=== PATIENT | female | born 1985 | race Two or more races ===

== ENCOUNTER 2018-10-13 23:23 | Inpatient (IN) | payer SELFPAY ==
[~2018-10-13] VITALS: Ht 157.5 cm; Wt 57.6 kg
[2018-10-13] MEDS ORDERED: Morphine Sulfate 4mg/ml Inj (IV USE ONLY) IVP ONE (23:45)
[2018-10-14] VITALS (25 sets, daily range): BP systolic 100–157; BP diastolic 55–90
[2018-10-14 00:17] LABS: HEMATOCRIT 53.9 % (37.0-47.0); HEMOGLOBIN 17.3 G/DL (12.0-16.0); MEAN CORPUSCULAR VOLUME 97 FL (80-99); PLATELET COUNT 442 K/UL (150-450); RED BLOOD COUNT 5.55 M/UL (4.20-5.40); RED CELL DISTRIBUTION WIDTH 12.1 % (11.6-14.8); WHITE BLOOD COUNT 19.1 K/UL (4.8-10.8)
[2018-10-14] MEDS ORDERED: Morphine Sulfate 4mg/ml Inj (IV USE ONLY) IVP ONE (00:30)
[2018-10-14] MEDS ORDERED: Pantoprazole Inj IVP ONE (00:30)
[2018-10-14 00:34] LABS: ALANINE AMINOTRANSFERASE 47 U/L (12-78); ALBUMIN 3.7 G/DL (3.4-5.0); ALBUMIN/GLOBULIN RATIO 0.6 (1.0-2.7); ALKALINE PHOSPHATASE 168 U/L (46-116); ANION GAP 32 mmol/L (5-15); ASPARTATE AMINO TRANSFERASE 18 U/L (15-37); BILIRUBIN,TOTAL 0.7 MG/DL (0.2-1.0); BLOOD UREA NITROGEN 47 mg/dL (7-18); CALCIUM 9.5 MG/DL (8.5-10.1); CHLORIDE 90 MMOL/L (98-107); CREATININE 1.9 MG/DL (0.55-1.30); POTASSIUM 4.7 MMOL/L (3.5-5.1); SODIUM 130 MMOL/L (136-145)
[2018-10-14 00:47] LABS: CARBON DIOXIDE 8 MMOL/L (21-32)
[2018-10-14 01:58] LABS: APPEARANCE,URINE CLEAR; BILIRUBIN, URINE NEGATIVE (NEGATIVE); COLOR,URINE PALE YELLOW; GLUCOSE, URINE (UA) 4+ (NEGATIVE); KETONES,URINE 4+ (NEGATIVE); LEUKOCYTE ESTERASE ,URINE NEGATIVE (NEGATIVE); NITRITE,URINE NEGATIVE (NEGATIVE); PH,URINE 5 (4.5-8.0); PROTEIN,URINE 3+ (NEGATIVE); UROBILINOGEN,URINE NORMAL MG/DL (0.0-1.0)
--- NOTE | 2018-10-14 02:10 | Emergency Room Report ---
History of Present Illness General Chief Complaint: Abdominal Pain Source: Patient, EMS Present Illness HPI This is a 33-year-old female with a history of insulin-dependent diabetes. She is not taking any medication. She said she doesn't want to. She also has a history of methamphetamine abuse. She presents with chief complaint abdominal pain with nausea and vomiting. Also with hematemesis. Onset for last 3 days. Unable to keep anything down. Similar symptoms 4 months ago when she was at another hospital. She did not know what happened. He denies any fever chills but denies any diarrhea. Vomiting has blood per patient. Said his dark blood. Denies any fever or chills. Denies any trauma. Pain is 10 out of 10. Pain is localized to the epigastric area. Allergies: Coded Allergies: No Known Allergies (Unverified , 10/13/18) Patient History Past Medical History: see triage record, old chart reviewed, DM Past Surgical History: other Pertinent Family History: none Social History: Reports: smoking, drug use - Methamphetamine Now: No Immunizations: other Reviewed Nursing Documentation: PMH: Agreed; PSxH: Agreed Nursing Documentation-PMH Hx Diabetes: Yes Review of Systems Constitutional: Reports: weakness Eye: Denies: eye pain, blurred vision ENT: Denies: ear pain, nose congestion, throat swelling Respiratory: Denies: cough, shortness of breath Cardiovascular: Denies: chest pain, palpitations Gastrointestinal: Reports: abdominal pain, nausea, vomiting, hematemesis Musculoskeletal: Denies: back pain, joint pain Skin: Denies: rash Neurological: Denies: headache, numbness Endocrine: Denies: increased thirst, increased urine Hematologic/Lymphatic: Denies: easy bruising All Other Systems: negative except mentioned in HPI Physical Exam Vital Signs Date Time Temp Pulse Resp B/P (MAP) Pulse Ox O2 Delivery O2 Flow Rate FiO2 10/13/18 23:19 97.9 139 20 130/86 100 Room Air vitals with tachycardia Sp02 EP Interpretation: reviewed, normal General Appearance: no apparent distress, alert, thin Head: normocephalic, atraumatic Eyes: bilateral eye PERRL, bilateral eye EOMI ENT: hearing grossly normal, dry mucus membranes Neck: full range of motion, supple, no meningismus Respiratory: chest non-tender, lungs clear, normal breath sounds Cardiovascular #1: no murmur, tachycardia Gastrointestinal: normal bowel sounds, no mass, no organomegaly, no bruit, non- distended, tenderness - Epigastric tenderness Musculoskeletal: back normal, normal range of motion Neurologic: alert, oriented x3 Psychiatric: mood/affect normal Skin: warm/dry Procedures Critical Care Time Critical Care Time Critical care is mandated in this patient who presented with DKA. Patient require my urgent intervention to attenuate the risks of metabolic collapse which may lead to cardiovascular collapse and . Critical care time is 35 minutes excluding any reportable procedure. Critical care time included evaluation, multiple reevaluation, looking at old charts, interpreting laboratory and diagnostic data, discussing case with patient and family and consultants, and charting. Medical Decision Making Diagnostic Impression: Primary Impression: DKA (diabetic ketoacidoses) Qualified Codes: E10.10 - Type 1 diabetes mellitus with ketoacidosis without coma Additional Impressions: Hematemesis Qualified Codes: K92.0 - Hematemesis Methamphetamine abuse Noncompliance ER Course Patient presents with DKA. She is noncompliant with her medication. Not taking her insulin. Exacerbated by drug abuse. Insulin drip initiated. Patient will be admitted to ICU. I discussed case with Dr. Powell who will admit. Lab Results Impression labs with DKA EKG Diagnostic Results Rate: tachycardiac Rhythm: NSR ST Segments: other - NSST changes Rhythm Strip Diag. Results EP Interpretation: yes Rate: 125 Rhythm: NSR, no PVC's, no ectopy CT/MRI/US Diagnostic Results CT/MRI/US Diagnostic Results : Imaging Test Ordered: CT abd and pelvis Impression Read by radiologist. Urinary retention. Small hiatal hernia. Distal esophageal wall thickening. Last Vital Signs Date Time Temp Pulse Resp B/P (MAP) Pulse Ox O2 Delivery O2 Flow Rate FiO2 10/14/18 01:40 97.9 10/14/18 00:30 126 24 136/84 100 Room Air Status: improved Disposition: ADMITTED INPATIENT Condition: Critical Scripts No Active Prescriptions or Reported Meds Referrals: NOT CHOSEN IPA/,REFERRING (PCP) Grant Tao MD Oct 14, 2018 02:10
[2018-10-14] MEDS ORDERED: LR 1000ml 1,000 ML IV SCH (02:30)
[2018-10-14] MEDS ORDERED: Insulin Human Regular 100units/ml 3ml ONE (02:34)
[2018-10-14] MEDS ORDERED: Norco 5mg/325mg tab ORAL PRN (04:45)
[2018-10-14] MEDS ORDERED: HYDROcodone/Acetamin 7.5/325 tab ORAL PRN (04:45)
[2018-10-14 04:55] LABS: HEMATOCRIT 48.7 % (37.0-47.0); HEMOGLOBIN 15.9 G/DL (12.0-16.0); MEAN CORPUSCULAR VOLUME 96 FL (80-99); PLATELET COUNT 401 K/UL (150-450); RED CELL DISTRIBUTION WIDTH 11.7 % (11.6-14.8); WHITE BLOOD COUNT 19.7 K/UL (4.8-10.8)
[2018-10-14 05:13] LABS: ALANINE AMINOTRANSFERASE 42 U/L (12-78); ALBUMIN 3.2 G/DL (3.4-5.0); ALBUMIN/GLOBULIN RATIO 0.6 (1.0-2.7); ALKALINE PHOSPHATASE 152 U/L (46-116); ANION GAP 27 mmol/L (5-15); ASPARTATE AMINO TRANSFERASE 16 U/L (15-37); BILIRUBIN,TOTAL 0.6 MG/DL (0.2-1.0); BLOOD UREA NITROGEN 37 mg/dL (7-18); CALCIUM 8.4 MG/DL (8.5-10.1); CARBON DIOXIDE 10 MMOL/L (21-32); CHLORIDE 106 MMOL/L (98-107); CREATININE 1.4 MG/DL (0.55-1.30); POTASSIUM 4.1 MMOL/L (3.5-5.1); SODIUM 142 MMOL/L (136-145)
[2018-10-14] MEDS: Insulin Human Regular 100units/ml 3ml IV PRN ×8 (05:22→17:15)
[2018-10-14] MEDS: Zoysn 3.37gm in NS 100ML IVPB SCH ×3 (05:27→20:29)
[2018-10-14] MEDS: Insulin Rate Change 1 Each MISC PRN ×9 (06:04→17:51)
[2018-10-14 07:33] LABS: ANION GAP 21 mmol/L (5-15); BLOOD UREA NITROGEN 33 mg/dL (7-18); CALCIUM 8.6 MG/DL (8.5-10.1); CARBON DIOXIDE 13 MMOL/L (21-32); CHLORIDE 111 MMOL/L (98-107); CREATININE 1.3 MG/DL (0.55-1.30); POTASSIUM 3.3 MMOL/L (3.5-5.1); SODIUM 145 MMOL/L (136-145)
[2018-10-14 08:06] LABS: PHOSPHORUS 1.2 MG/DL (2.5-4.9)
[2018-10-14] MEDS: Pantoprazole Inj IVP SCH (08:39)
--- NOTE | 2018-10-14 08:40 | Pulmonolgy Critical Care Note ---
Critical Care - Asmt/Plan Problems: (1) DKA (diabetic ketoacidoses) (2) Hematemesis (3) Methamphetamine abuse (4) Noncompliance Respiratory: monitor respiratory rate, CXR, ABG Cardiac: continue to monitor HR/BP Renal: keep IV fluid - change to [id number]@150, check electrolytes - BNP q2 hours Infectious Disease: check cultures, continue antibiotics - Zosyn Gastrointestinal: other - NPO, pending GI eval, start PPI and carafate Endocrine: monitor blood sugar, other - continue insulin gtt, start SQ when gap closed, overlap for one hour, ENDO eval Hematologic: monitor H/H Neurologic: keep patient comfortable Prophylaxis: Protonix, Heparin Disposition: keep in ICU Time Spent (Minutes): 60 Notes Reviewed: corsetier Discussed with: nurses, consultants Critical Care - Objective Last 24 Hour Vital Signs Date Time Temp Pulse Resp B/P (MAP) Pulse Ox O2 Delivery O2 Flow Rate FiO2 10/14/18 07:00 140 20 121/73 (89) 100 10/14/18 06:08 135 20 121/73 (89) 100 10/14/18 05:00 138 20 126/70 (88) 100 10/14/18 04:00 97.6 136 24 127/74 (91) 98 10/14/18 04:00 Room Air 10/14/18 04:00 Room Air 10/14/18 03:53 135 10/14/18 03:25 97.9 122 21 133/69 100 Room Air 10/14/18 03:00 97.9 122 21 133/69 100 Room Air 10/14/18 02:00 97.9 129 21 157/77 100 Room Air 10/14/18 01:40 97.9 10/14/18 01:00 98.4 134 24 138/84 98 Room Air 10/14/18 00:41 97.9 10/14/18 00:30 98.8 126 24 136/84 100 Room Air 10/14/18 00:00 98.8 132 24 134/90 100 Room Air 10/13/18 23:45 139 20 Room Air 10/13/18 23:19 97.9 139 20 130/86 100 Room Air Status: awake HEENT: atraumatic, normocephalic Lungs: clear Heart: HR/BP unstable Abdomen: soft, non-tender, active bowel sounds Extremities: no C/C/E Micro: Microbiology Date/Time Source Procedure Growth Status 10/14/18 03:00 Rectum Received Accucheck: 197 Blood Sugars: BS not controlled Critical Care - Subjective ROS Limited/Unobtainable: Yes ICU Day: 1 Intubation Day: N/A Interval Events: 33 F h/o IDDM non-compliant and methamphetamine abuse p/w abd pain, N/V and hematemesis x 3 days noted to be in DKA, started on an insulin gtt in the ER, initially HCO3 8, AG 32 now HCO3 13 and AG 21, doing better, BS in 200s. Condition: critical, improving IV Access: peripheral - x2 EKG Rhythm: Sinus Tachycardia Fluids: NS@150 Drips: Insulin I&O: Intake and Output 10/13/18 10/14/18 19:00 07:00 Intake Total 356.5 ml Output Total 2000 ml Balance -1643.5 ml Intake IV Total 356.5 ml Output Urine Total 2000 ml Subjective: + N + V + hematemesis no F/C no CP no SOB + abd pain no dys/urg/freq/hesit Labs: Laboratory Tests Test 10/14/18 00:00 10/14/18 01:40 10/14/18 04:29 10/14/18 07:00 White Blood Count 19.1 K/UL (4.8-10.8) H 19.7 K/UL (4.8-10.8) H Red Blood Count 5.55 M/UL (4.20-5.40) H 5.10 M/UL (4.20-5.40) Hemoglobin 17.3 G/DL (12.0-16.0) H 15.9 G/DL (12.0-16.0) Hematocrit 53.9 % (37.0-47.0) H 48.7 % (37.0-47.0) H Mean Corpuscular Volume 97 FL (80-99) 96 FL (80-99) Mean Corpuscular Hemoglobin 31.1 PG (27.0-31.0) H 31.2 PG (27.0-31.0) H Mean Corpuscular Hemoglobin Concent 32.1 G/DL (32.0-36.0) 32.7 G/DL (32.0-36.0) Red Cell Distribution Width 12.1 % (11.6-14.8) 11.7 % (11.6-14.8) Platelet Count 442 K/UL (150-450) 401 K/UL (150-450) Mean Platelet Volume 5.9 FL (6.5-10.1) L 6.1 FL (6.5-10.1) L Neutrophils (%) (Auto) % (45.0-75.0) % (45.0-75.0) Lymphocytes (%) (Auto) % (20.0-45.0) % (20.0-45.0) Monocytes (%) (Auto) % (1.0-10.0) % (1.0-10.0) Eosinophils (%) (Auto) % (0.0-3.0) % (0.0-3.0) Basophils (%) (Auto) % (0.0-2.0) % (0.0-2.0) Sodium Level 130 MMOL/L (136-145) L 142 MMOL/L (136-145) # 145 MMOL/L (136-145) Potassium Level 4.7 MMOL/L (3.5-5.1) 4.1 MMOL/L (3.5-5.1) 3.3 MMOL/L (3.5-5.1) L Chloride Level 90 MMOL/L (98-107) L 106 MMOL/L (98-107) 111 MMOL/L (98-107) H Carbon Dioxide Level 8 MMOL/L (21-32) *L 10 MMOL/L (21-32) L 13 MMOL/L (21-32) L Anion Gap 32 mmol/L (5-15) H 27 mmol/L (5-15) H 21 mmol/L (5-15) H Blood Urea Nitrogen 47 mg/dL (7-18) H 37 mg/dL (7-18) H 33 mg/dL (7-18) H Creatinine 1.9 MG/DL (0.55-1.30) H 1.4 MG/DL (0.55-1.30) H 1.3 MG/DL (0.55-1.30) Estimat Glomerular Filtration Rate 30.1 mL/min (>60) 42.8 mL/min (>60) 46.6 mL/min (>60) Glucose Level 730 MG/DL (74-106) *H 417 MG/DL (74-106) #H 217 MG/DL (74-106) #H Calcium Level 9.5 MG/DL (8.5-10.1) 8.4 MG/DL (8.5-10.1) L 8.6 MG/DL (8.5-10.1) Total Bilirubin 0.7 MG/DL (0.2-1.0) 0.6 MG/DL (0.2-1.0) Aspartate Amino Transf (AST/SGOT) 18 U/L (15-37) 16 U/L (15-37) Alanine Aminotransferase (ALT/SGPT) 47 U/L (12-78) 42 U/L (12-78) Alkaline Phosphatase 168 U/L (46-116) H 152 U/L (46-116) H Total Protein 9.4 G/DL (6.4-8.2) H 8.4 G/DL (6.4-8.2) H Albumin 3.7 G/DL (3.4-5.0) 3.2 G/DL (3.4-5.0) L Globulin 5.7 g/dL 5.2 g/dL Albumin/Globulin Ratio 0.6 (1.0-2.7) L 0.6 (1.0-2.7) L Lipase 183 U/L (73-393) Human Chorionic Gonadotropin, Qual Negative (NEGATIVE) Urine Color Pale yellow Urine Appearance Clear Urine pH 5 (4.5-8.0) Urine Specific [place] 1.015 (1.005-1.035) Urine Protein 3+ (NEGATIVE) H Urine Glucose (UA) 4+ (NEGATIVE) H Urine Ketones 4+ (NEGATIVE) H Urine Blood 2+ (NEGATIVE) H Urine Nitrite Negative (NEGATIVE) Urine Bilirubin Negative (NEGATIVE) Urine Urobilinogen Normal MG/DL (0.0-1.0) Urine Leukocyte Esterase Negative (NEGATIVE) Urine RBC 2-4 /HPF (0 - 2) H Urine WBC 0-2 /HPF (0 - 2) Urine Squamous Epithelial Cells Few /LPF (NONE/OCC) Urine Bacteria Few /HPF (NONE) Urine HCG, Qualitative Negative (NEGATIVE) Neutrophils % (Manual) Pending Lymphocytes % (Manual) Pending Platelet Estimate Pending Platelet Morphology Pending Hemoglobin A1c 10.8 % (4.3-6.0) H Lactic Acid Level 1.50 mmol/L (0.4-2.0) Phosphorus Level 1.2 MG/DL (2.5-4.9) L Magnesium Level 2.1 MG/DL (1.8-2.4) Bean Powell MD Oct 14, 2018 08:40
[2018-10-14] MEDS: Morphine Sulfate 2mg/ml Inj(IV/IM USE ONLY) IVP PRN ×3 (08:52→20:06)
[2018-10-14] MEDS: Heparin 5000 units/ml inj SUBQ SCH ×2 (09:00→20:29)
[2018-10-14] MEDS: D5 1/2NS w/KCl 20mEq 1,000 ML IV SCH ×4 (09:18→23:31)
--- NOTE | 2018-10-14 09:33 | Diagnostic Imaging Report ---
Indication: Abdominal pain for 3 days Technique: Spiral acquisitions obtained through the abdomen and pelvis. No oral contrast utilized, per emergency room physician request No IV contrast utilized, per referring physician request.. Multiplanar reconstructions were generated. Total dose length product 634 mGycm. CTDIvol(s) 11 mGy. Dose reduction achieved using automated exposure control Comparison: None Findings: There is some image degradation due to patient motion artifact. The bladder is massively distended, extends well above the umbilicus. The appendix is prominent but otherwise normal. No evidence of diverticulosis or diverticulitis. No small bowel distention. No free or loculated intraperitoneal gas or fluid. There is a small sliding-type hiatal hernia. There is some distal esophageal wall thickening. The stomach is unremarkable. Lack of IV contrast limits assessment of the solid organs. The liver, gallbladder, bile ducts, pancreas, spleen, adrenals are unremarkable. There is very mild fullness to the bilateral renal collecting system, presumably related to the bladder distention. Ureters are not dilated and there are no renal or ureteral calculi demonstrated. No focal renal parenchymal abnormality. No retroperitoneal or mesenteric mass or adenopathy. No pelvic mass or adenopathy. The bones demonstrate degenerative spondylosis changes. Bone island is seen in the left femoral head. Included lung bases are clear for minimal atelectasis in the right lateral costophrenic sulcus. Impression: Limited exam, due to motion artifact, lack of IV and oral contrast administration Massively distended urinary bladder Mild ectasia of the bilateral renal collecting system, presumably related to the above Small sliding-type hiatal hernia. Equivocal distal esophageal wall thickening. Consider endoscopy for better characterization No definite acute process otherwise The CT scanner at [facility] is accredited by the [employer] and the scans are performed using protocols designed to limit radiation exposure to as low as reasonably achievable to attain images of sufficient resolution adequate for diagnostic evaluation.
[2018-10-14 09:52] LABS: ALANINE AMINOTRANSFERASE 36 U/L (12-78); ALBUMIN/GLOBULIN RATIO 0.6 (1.0-2.7); ALKALINE PHOSPHATASE 135 U/L (46-116); ANION GAP 20 mmol/L (5-15); ASPARTATE AMINO TRANSFERASE 15 U/L (15-37); BILIRUBIN,TOTAL 0.8 MG/DL (0.2-1.0); BLOOD UREA NITROGEN 30 mg/dL (7-18); CALCIUM 8.4 MG/DL (8.5-10.1); CARBON DIOXIDE 14 MMOL/L (21-32); CHLORIDE 112 MMOL/L (98-107); CREATININE 1.3 MG/DL (0.55-1.30); POTASSIUM 3.8 MMOL/L (3.5-5.1); SODIUM 146 MMOL/L (136-145)
[2018-10-14] MEDS ORDERED: Potassium Phosphate 30 MM in NS 275 ML IV SCH (11:00)
[2018-10-14 11:56] LABS: ANION GAP 18 mmol/L (5-15); BLOOD UREA NITROGEN 27 mg/dL (7-18); CALCIUM 8.1 MG/DL (8.5-10.1); CARBON DIOXIDE 13 MMOL/L (21-32); CHLORIDE 114 MMOL/L (98-107); CREATININE 1.3 MG/DL (0.55-1.30); POTASSIUM 4.5 MMOL/L (3.5-5.1); SODIUM 145 MMOL/L (136-145)
[2018-10-14 12:01] LABS: ALANINE AMINOTRANSFERASE 34 U/L (12-78); ALBUMIN 2.8 G/DL (3.4-5.0); ALBUMIN/GLOBULIN RATIO 0.6 (1.0-2.7); ALKALINE PHOSPHATASE 122 U/L (46-116); ASPARTATE AMINO TRANSFERASE 13 U/L (15-37); BILIRUBIN,TOTAL 0.7 MG/DL (0.2-1.0)
--- NOTE | 2018-10-14 12:39 | Diagnostic Imaging Report ---
Indication: Abdominal pain Technique: Supine view of the abdomen Comparison: none Findings: Bowel gas pattern is unremarkable. Zuluaga catheter is in place.. No masses or unusual calcifications Impression: No acute process
--- NOTE | 2018-10-14 12:40 | Diagnostic Imaging Report ---
Indication: Shortness of breath Technique: One view of the chest Comparison: none Findings: Lungs and pleural spaces are clear. Heart size is normal. Impression: Negative
--- NOTE | 2018-10-14 13:23 | History and Physical ---
History of Present Illness General Date patient seen: Oct 14, 2018 Time patient seen: 08:00 Reason for Hospitalization: DKA Present Illness HPI 33 year old woman with history of insulin dependent diabetes mellitus, noncompliant with insulin, substance abuse with amphetamines who presented to the ED yesterday with abdominal pain, N/V and hematemesis x 3 days noted to be in DKA, started on an insulin drip in the ER and admitted to ICU. This morning she is asking for morphine due to abdominal pain. Social History: Amphetamine and tobacco use Family History: Unknown Allergies: Coded Allergies: No Known Allergies (Unverified , 10/13/18) Medication History No Active Prescriptions or Reported Meds Patient History Limited by: language barrier Healthcare decision maker self Resuscitation status Full Code Advanced Directive on File No Review of Systems Constitutional: Denies: fever Eye: Denies: blurred vision ENT: Denies: ear pain Respiratory: Denies: cough Cardiovascular: Denies: chest pain Gastrointestinal: Reports: abdominal pain, nausea, vomiting, hematemesis Musculoskeletal: Reports: back pain Skin: Reports: rash Neurological: Reports: headache Physical Exam General Appearance: alert, mild distress HEENT: normocephalic, atraumatic, anicteric Neck: normal alignment, supple Respiratory/Chest: chest wall non-tender, lungs clear, normal breath sounds Cardiovascular/Chest: normal rate, regular rhythm Abdomen: soft, other - Mild diffuse tenderness Skin Exam: normal pigmentation, warm/dry Neurologic: preprint analyst II-XII grossly normal, no motor/sensory deficits Last 24 Hour Vital Signs Date Time Temp Pulse Resp B/P (MAP) Pulse Ox O2 Delivery O2 Flow Rate FiO2 10/14/18 12:00 98.9 138 29 126/77 (93) 98 10/14/18 12:00 Room Air 10/14/18 11:00 132 19 140/69 (92) 98 10/14/18 10:00 138 21 111/56 (74) 98 10/14/18 09:00 143 21 126/70 (88) 98 10/14/18 08:00 140 10/14/18 08:00 Room Air 10/14/18 08:00 140 23 114/60 (78) 99 10/14/18 07:00 140 20 121/73 (89) 100 10/14/18 06:08 135 20 121/73 (89) 100 10/14/18 05:00 138 20 126/70 (88) 100 10/14/18 04:00 97.6 136 24 127/74 (91) 98 10/14/18 04:00 Room Air 10/14/18 04:00 Room Air 10/14/18 03:53 135 10/14/18 03:25 97.9 122 21 133/69 100 Room Air 10/14/18 03:00 97.9 122 21 133/69 100 Room Air 10/14/18 02:00 97.9 129 21 157/77 100 Room Air 10/14/18 01:40 97.9 10/14/18 01:00 98.4 134 24 138/84 98 Room Air 10/14/18 00:41 97.9 10/14/18 00:30 98.8 126 24 136/84 100 Room Air 10/14/18 00:00 98.8 132 24 134/90 100 Room Air 10/13/18 23:45 139 20 Room Air 10/13/18 23:19 97.9 139 20 130/86 100 Room Air Intake and Output 10/13/18 10/14/18 19:00 07:00 Intake Total 356.5 ml Output Total 2000 ml Balance -1643.5 ml Intake IV Total 356.5 ml Output Urine Total 2000 ml Laboratory Tests Test 10/14/18 00:00 10/14/18 01:40 10/14/18 04:29 10/14/18 07:00 White Blood Count 19.1 K/UL (4.8-10.8) H 19.7 K/UL (4.8-10.8) H Red Blood Count 5.55 M/UL (4.20-5.40) H 5.10 M/UL (4.20-5.40) Hemoglobin 17.3 G/DL (12.0-16.0) H 15.9 G/DL (12.0-16.0) Hematocrit 53.9 % (37.0-47.0) H 48.7 % (37.0-47.0) H Mean Corpuscular Volume 97 FL (80-99) 96 FL (80-99) Mean Corpuscular Hemoglobin 31.1 PG (27.0-31.0) H 31.2 PG (27.0-31.0) H Mean Corpuscular Hemoglobin Concent 32.1 G/DL (32.0-36.0) 32.7 G/DL (32.0-36.0) Red Cell Distribution Width 12.1 % (11.6-14.8) 11.7 % (11.6-14.8) Platelet Count 442 K/UL (150-450) 401 K/UL (150-450) Mean Platelet Volume 5.9 FL (6.5-10.1) L 6.1 FL (6.5-10.1) L Neutrophils (%) (Auto) % (45.0-75.0) % (45.0-75.0) Lymphocytes (%) (Auto) % (20.0-45.0) % (20.0-45.0) Monocytes (%) (Auto) % (1.0-10.0) % (1.0-10.0) Eosinophils (%) (Auto) % (0.0-3.0) % (0.0-3.0) Basophils (%) (Auto) % (0.0-2.0) % (0.0-2.0) Sodium Level 130 MMOL/L (136-145) L 142 MMOL/L (136-145) # 145 MMOL/L (136-145) Potassium Level 4.7 MMOL/L (3.5-5.1) 4.1 MMOL/L (3.5-5.1) 3.3 MMOL/L (3.5-5.1) L Chloride Level 90 MMOL/L (98-107) L 106 MMOL/L (98-107) 111 MMOL/L (98-107) H Carbon Dioxide Level 8 MMOL/L (21-32) *L 10 MMOL/L (21-32) L 13 MMOL/L (21-32) L Anion Gap 32 mmol/L (5-15) H 27 mmol/L (5-15) H 21 mmol/L (5-15) H Blood Urea Nitrogen 47 mg/dL (7-18) H 37 mg/dL (7-18) H 33 mg/dL (7-18) H Creatinine 1.9 MG/DL (0.55-1.30) H 1.4 MG/DL (0.55-1.30) H 1.3 MG/DL (0.55-1.30) Estimat Glomerular Filtration Rate 30.1 mL/min (>60) 42.8 mL/min (>60) 46.6 mL/min (>60) Glucose Level 730 MG/DL (74-106) *H 417 MG/DL (74-106) #H 217 MG/DL (74-106) #H Calcium Level 9.5 MG/DL (8.5-10.1) 8.4 MG/DL (8.5-10.1) L 8.6 MG/DL (8.5-10.1) Total Bilirubin 0.7 MG/DL (0.2-1.0) 0.6 MG/DL (0.2-1.0) Aspartate Amino Transf (AST/SGOT) 18 U/L (15-37) 16 U/L (15-37) Alanine Aminotransferase (ALT/SGPT) 47 U/L (12-78) 42 U/L (12-78) Alkaline Phosphatase 168 U/L (46-116) H 152 U/L (46-116) H Total Protein 9.4 G/DL (6.4-8.2) H 8.4 G/DL (6.4-8.2) H Albumin 3.7 G/DL (3.4-5.0) 3.2 G/DL (3.4-5.0) L Globulin 5.7 g/dL 5.2 g/dL Albumin/Globulin Ratio 0.6 (1.0-2.7) L 0.6 (1.0-2.7) L Lipase 183 U/L (73-393) Human Chorionic Gonadotropin, Qual Negative (NEGATIVE) Urine Color Pale yellow Urine Appearance Clear Urine pH 5 (4.5-8.0) Urine Specific [place] 1.015 (1.005-1.035) Urine Protein 3+ (NEGATIVE) H Urine Glucose (UA) 4+ (NEGATIVE) H Urine Ketones 4+ (NEGATIVE) H Urine Blood 2+ (NEGATIVE) H Urine Nitrite Negative (NEGATIVE) Urine Bilirubin Negative (NEGATIVE) Urine Urobilinogen Normal MG/DL (0.0-1.0) Urine Leukocyte Esterase Negative (NEGATIVE) Urine RBC 2-4 /HPF (0 - 2) H Urine WBC 0-2 /HPF (0 - 2) Urine Squamous Epithelial Cells Few /LPF (NONE/OCC) Urine Bacteria Few /HPF (NONE) Urine HCG, Qualitative Negative (NEGATIVE) Differential Total Cells Counted 100 Neutrophils % (Manual) 82 % (45-75) H Lymphocytes % (Manual) 5 % (20-45) L Monocytes % (Manual) 5 % (1-10) Eosinophils % (Manual) 0 % (0-3) Basophils % (Manual) 0 % (0-2) Band Neutrophils 8 % (0-8) Platelet Estimate Adequate Platelet Morphology Normal Red Blood Cell Morphology Normal Hemoglobin A1c 10.8 % (4.3-6.0) H Lactic Acid Level 1.50 mmol/L (0.4-2.0) Phosphorus Level 1.2 MG/DL (2.5-4.9) L Magnesium Level 2.1 MG/DL (1.8-2.4) Test 10/14/18 08:40 10/14/18 08:55 10/14/18 11:00 Arterial Blood pH 7.274 (7.350-7.450) Arterial Blood Partial Pressure CO2 23.9 mmHg (35.0-45.0) *L Arterial Blood Partial Pressure O2 96.5 mmHg (75.0-100.0) Arterial Blood HCO3 10.8 mmol/L (22.0-26.0) *L Arterial Blood Oxygen Saturation 97.3 % (95-100) Arterial Blood Base Excess -14.0 (-2-2) *L Tanner Test Positive Sodium Level 146 MMOL/L (136-145) H 145 MMOL/L (136-145) Potassium Level 3.8 MMOL/L (3.5-5.1) 4.5 MMOL/L (3.5-5.1) Chloride Level 112 MMOL/L (98-107) H 114 MMOL/L (98-107) H Carbon Dioxide Level 14 MMOL/L (21-32) L 13 MMOL/L (21-32) L Anion Gap 20 mmol/L (5-15) H 18 mmol/L (5-15) H Blood Urea Nitrogen 30 mg/dL (7-18) H 27 mg/dL (7-18) H Creatinine 1.3 MG/DL (0.55-1.30) 1.3 MG/DL (0.55-1.30) Estimat Glomerular Filtration Rate 46.6 mL/min (>60) 46.6 mL/min (>60) Glucose Level 195 MG/DL (74-106) H 284 MG/DL (74-106) H Calcium Level 8.4 MG/DL (8.5-10.1) L 8.1 MG/DL (8.5-10.1) L Total Bilirubin 0.8 MG/DL (0.2-1.0) 0.7 MG/DL (0.2-1.0) Aspartate Amino Transf (AST/SGOT) 15 U/L (15-37) 13 U/L (15-37) L Alanine Aminotransferase (ALT/SGPT) 36 U/L (12-78) 34 U/L (12-78) Alkaline Phosphatase 135 U/L (46-116) H 122 U/L (46-116) H Total Protein 7.8 G/DL (6.4-8.2) 7.4 G/DL (6.4-8.2) Albumin 3.0 G/DL (3.4-5.0) L 2.8 G/DL (3.4-5.0) L Globulin 4.8 g/dL 4.6 g/dL Albumin/Globulin Ratio 0.6 (1.0-2.7) L 0.6 (1.0-2.7) L Microbiology Date/Time Source Procedure Growth Status 10/14/18 03:00 Rectum Received Height (Feet): 5 Height (Inches): 3.00 Weight (Pounds): 124 Medications Current Medications Medications (Trade) Dose Ordered Sig/Doris Route PRN Reason Start Time Stop Time Status Last Admin Dose Admin Acetaminophen/ Hydrocodone Bitart ([place] 5/325) 1 tab Q4H PRN ORAL Mild Pain (Pain Scale 1-3) 10/14/18 04:45 10/21/18 04:44 Acetaminophen/ Hydrocodone Bitart ([place] 7.5/325) 1 tab Q4H PRN ORAL Pain Scale (3-5) 10/14/18 04:45 10/21/18 04:44 Dextrose (Dextrose 50%) 25 ml Q30M PRN IV HYPOGLYCEMIA 10/14/18 04:15 11/13/18 04:14 Dextrose (Dextrose 50%) 50 ml Q30M PRN IV HYPOGLYCEMIA 10/14/18 04:15 11/13/18 04:14 Dextrose/ Electrolytes 1,000 ml @ 150 mls/hr Q6H40M IV 10/14/18 09:00 11/13/18 08:59 10/14/18 09:18 Heparin Sodium (Porcine) (Heparin 5000 units/ml) 5,000 units EVERY 12 HOURS SUBQ 10/14/18 09:00 11/13/18 08:59 Insulin Human Regular (NovoLIN R) 5 units PRN PRN IV BS 200-299 10/14/18 04:15 11/13/18 04:14 10/14/18 12:13 Insulin Human Regular (NovoLIN R) 10 units PRN PRN IV BS=>300 10/14/18 04:15 11/13/18 04:14 10/14/18 06:05 Insulin Human Regular 100 units/ Sodium Chloride 101 ml @ 0 mls/hr Q24H IV 10/14/18 04:15 11/13/18 04:14 10/14/18 05:26 Miscellaneous Medication (Insulin Rate Change) 1 ea PRN PRN MISC Hyperglycemia 10/14/18 04:15 11/13/18 04:14 10/14/18 12:09 Morphine Sulfate (Morphine Sulfate) 1 mg Q4H PRN IVP For Pain 10/14/18 08:30 10/21/18 08:29 10/14/18 08:52 Ondansetron HCl (Zofran) 4 mg Q4H PRN IVP Nausea & Vomiting 10/14/18 08:15 11/13/18 08:14 10/14/18 08:42 Pantoprazole (Protonix) 40 mg DAILY IVP 10/14/18 09:00 11/13/18 08:59 10/14/18 08:39 Piperacillin Sod/ Tazobactam Sod 3.375 gm/Sodium Chloride 110 ml @ 27.5 mls/hr Q8H IVPB 10/14/18 05:00 10/21/18 04:59 10/14/18 05:27 Potassium Phosphate 30 mm/ Sodium Chloride 285 ml @ 47.5 mls/hr ONCE IV 10/14/18 11:00 10/14/18 23:59 10/14/18 11:18 Assessment/Plan Assessment/Plan #DKA #Noncompliant with insulin -admit to ICU -continue insulin drip -Monitor potassium levels -Monitor finger sticks -Replace K with IV fluids -Endocrinology consult Dr. Jara -Social Work eval #Abdominal pain associated with nausea and vomiting #Hematemesis -IV Protonix -monitor H&H -GI consulted VTE PPx SCD Full Code Tc Fuentes MD Oct 14, 2018 13:23
--- NOTE | 2018-10-14 14:09 | GI Initial Consult Note ---
History of Present Illness General Date patient seen: Oct 14, 2018 Time patient seen: 14:07 Reason for Hospitalization: Abdominal Pain Referring physician: ESTELLE ISLAS Reason for Consultation: EMESIS, Esophageal wall thickening Present Illness HPI 33 year old woman with history of insulin dependent diabetes mellitus, noncompliant with insulin, substance abuse with amphetamines who presented to the ED yesterday with abdominal pain, N/V and hematemesis x 3 days noted to be in DKA, started on an insulin drip in the ER and admitted to ICU. This morning she is asking for morphine due to abdominal pain. GI consulted for reported hematemesis. Pt seen, awake A&Ox4 appears extremely weak. No active s/sx of N/V/D. Has current complaint of abdominal pain. AP CT reviewed, noted that the patient has equivocal distal esophageal wall thickening. Labs reviewed show no anemia. No history of endoscopy or colonoscopy. Home Meds No Active Prescriptions or Reported Meds Med list reviewed/reconciled: Yes Allergies: Coded Allergies: No Known Allergies (Unverified , 10/13/18) Patient History History Provided By: Patient, Medical Record Past Medical History: none PMH Narrative Social History: Amphetamine and tobacco use Family History: Unknown Allergies: Coded Allergies: No Known Allergies (Unverified , 10/13/18) Limited by: language barrier Healthcare decision maker self Resuscitation status Full Code Advanced Directive on File No Social History: Reports: alcohol use, drug use Review of Systems All Other Systems: negative except mentioned in HPI Physical Exam Vital Signs Date Time Temp Pulse Resp B/P (MAP) Pulse Ox O2 Delivery O2 Flow Rate FiO2 10/13/18 23:19 97.9 139 20 130/86 100 Room Air Sp02 EP Interpretation: reviewed, normal Labs Laboratory Tests Test 10/14/18 00:00 10/14/18 01:40 10/14/18 04:29 10/14/18 07:00 White Blood Count 19.1 K/UL (4.8-10.8) H 19.7 K/UL (4.8-10.8) H Red Blood Count 5.55 M/UL (4.20-5.40) H 5.10 M/UL (4.20-5.40) Hemoglobin 17.3 G/DL (12.0-16.0) H 15.9 G/DL (12.0-16.0) Hematocrit 53.9 % (37.0-47.0) H 48.7 % (37.0-47.0) H Mean Corpuscular Volume 97 FL (80-99) 96 FL (80-99) Mean Corpuscular Hemoglobin 31.1 PG (27.0-31.0) H 31.2 PG (27.0-31.0) H Mean Corpuscular Hemoglobin Concent 32.1 G/DL (32.0-36.0) 32.7 G/DL (32.0-36.0) Red Cell Distribution Width 12.1 % (11.6-14.8) 11.7 % (11.6-14.8) Platelet Count 442 K/UL (150-450) 401 K/UL (150-450) Mean Platelet Volume 5.9 FL (6.5-10.1) L 6.1 FL (6.5-10.1) L Neutrophils (%) (Auto) % (45.0-75.0) % (45.0-75.0) Lymphocytes (%) (Auto) % (20.0-45.0) % (20.0-45.0) Monocytes (%) (Auto) % (1.0-10.0) % (1.0-10.0) Eosinophils (%) (Auto) % (0.0-3.0) % (0.0-3.0) Basophils (%) (Auto) % (0.0-2.0) % (0.0-2.0) Sodium Level 130 MMOL/L (136-145) L 142 MMOL/L (136-145) # 145 MMOL/L (136-145) Potassium Level 4.7 MMOL/L (3.5-5.1) 4.1 MMOL/L (3.5-5.1) 3.3 MMOL/L (3.5-5.1) L Chloride Level 90 MMOL/L (98-107) L 106 MMOL/L (98-107) 111 MMOL/L (98-107) H Carbon Dioxide Level 8 MMOL/L (21-32) *L 10 MMOL/L (21-32) L 13 MMOL/L (21-32) L Anion Gap 32 mmol/L (5-15) H 27 mmol/L (5-15) H 21 mmol/L (5-15) H Blood Urea Nitrogen 47 mg/dL (7-18) H 37 mg/dL (7-18) H 33 mg/dL (7-18) H Creatinine 1.9 MG/DL (0.55-1.30) H 1.4 MG/DL (0.55-1.30) H 1.3 MG/DL (0.55-1.30) Estimat Glomerular Filtration Rate 30.1 mL/min (>60) 42.8 mL/min (>60) 46.6 mL/min (>60) Glucose Level 730 MG/DL (74-106) *H 417 MG/DL (74-106) #H 217 MG/DL (74-106) #H Calcium Level 9.5 MG/DL (8.5-10.1) 8.4 MG/DL (8.5-10.1) L 8.6 MG/DL (8.5-10.1) Total Bilirubin 0.7 MG/DL (0.2-1.0) 0.6 MG/DL (0.2-1.0) Aspartate Amino Transf (AST/SGOT) 18 U/L (15-37) 16 U/L (15-37) Alanine Aminotransferase (ALT/SGPT) 47 U/L (12-78) 42 U/L (12-78) Alkaline Phosphatase 168 U/L (46-116) H 152 U/L (46-116) H Total Protein 9.4 G/DL (6.4-8.2) H 8.4 G/DL (6.4-8.2) H Albumin 3.7 G/DL (3.4-5.0) 3.2 G/DL (3.4-5.0) L Globulin 5.7 g/dL 5.2 g/dL Albumin/Globulin Ratio 0.6 (1.0-2.7) L 0.6 (1.0-2.7) L Lipase 183 U/L (73-393) Human Chorionic Gonadotropin, Qual Negative (NEGATIVE) Urine Color Pale yellow Urine Appearance Clear Urine pH 5 (4.5-8.0) Urine Specific [place] 1.015 (1.005-1.035) Urine Protein 3+ (NEGATIVE) H Urine Glucose (UA) 4+ (NEGATIVE) H Urine Ketones 4+ (NEGATIVE) H Urine Blood 2+ (NEGATIVE) H Urine Nitrite Negative (NEGATIVE) Urine Bilirubin Negative (NEGATIVE) Urine Urobilinogen Normal MG/DL (0.0-1.0) Urine Leukocyte Esterase Negative (NEGATIVE) Urine RBC 2-4 /HPF (0 - 2) H Urine WBC 0-2 /HPF (0 - 2) Urine Squamous Epithelial Cells Few /LPF (NONE/OCC) Urine Bacteria Few /HPF (NONE) Urine HCG, Qualitative Negative (NEGATIVE) Differential Total Cells Counted 100 Neutrophils % (Manual) 82 % (45-75) H Lymphocytes % (Manual) 5 % (20-45) L Monocytes % (Manual) 5 % (1-10) Eosinophils % (Manual) 0 % (0-3) Basophils % (Manual) 0 % (0-2) Band Neutrophils 8 % (0-8) Platelet Estimate Adequate Platelet Morphology Normal Red Blood Cell Morphology Normal Hemoglobin A1c 10.8 % (4.3-6.0) H Lactic Acid Level 1.50 mmol/L (0.4-2.0) Phosphorus Level 1.2 MG/DL (2.5-4.9) L Magnesium Level 2.1 MG/DL (1.8-2.4) Test 10/14/18 08:40 10/14/18 08:55 10/14/18 11:00 Arterial Blood pH 7.274 (7.350-7.450) Arterial Blood Partial Pressure CO2 23.9 mmHg (35.0-45.0) *L Arterial Blood Partial Pressure O2 96.5 mmHg (75.0-100.0) Arterial Blood HCO3 10.8 mmol/L (22.0-26.0) *L Arterial Blood Oxygen Saturation 97.3 % (95-100) Arterial Blood Base Excess -14.0 (-2-2) *L Tanner Test Positive Sodium Level 146 MMOL/L (136-145) H 145 MMOL/L (136-145) Potassium Level 3.8 MMOL/L (3.5-5.1) 4.5 MMOL/L (3.5-5.1) Chloride Level 112 MMOL/L (98-107) H 114 MMOL/L (98-107) H Carbon Dioxide Level 14 MMOL/L (21-32) L 13 MMOL/L (21-32) L Anion Gap 20 mmol/L (5-15) H 18 mmol/L (5-15) H Blood Urea Nitrogen 30 mg/dL (7-18) H 27 mg/dL (7-18) H Creatinine 1.3 MG/DL (0.55-1.30) 1.3 MG/DL (0.55-1.30) Estimat Glomerular Filtration Rate 46.6 mL/min (>60) 46.6 mL/min (>60) Glucose Level 195 MG/DL (74-106) H 284 MG/DL (74-106) H Calcium Level 8.4 MG/DL (8.5-10.1) L 8.1 MG/DL (8.5-10.1) L Total Bilirubin 0.8 MG/DL (0.2-1.0) 0.7 MG/DL (0.2-1.0) Aspartate Amino Transf (AST/SGOT) 15 U/L (15-37) 13 U/L (15-37) L Alanine Aminotransferase (ALT/SGPT) 36 U/L (12-78) 34 U/L (12-78) Alkaline Phosphatase 135 U/L (46-116) H 122 U/L (46-116) H Total Protein 7.8 G/DL (6.4-8.2) 7.4 G/DL (6.4-8.2) Albumin 3.0 G/DL (3.4-5.0) L 2.8 G/DL (3.4-5.0) L Globulin 4.8 g/dL 4.6 g/dL Albumin/Globulin Ratio 0.6 (1.0-2.7) L 0.6 (1.0-2.7) L General Appearance: well appearing, no apparent distress, alert Head: normocephalic EENT: PERRL/EOMI, normal ENT inspection Neck: supple Respiratory: normal breath sounds, no respiratory distress Cardiovascular: normal rate Gastrointestinal: normal inspection, non tender, soft, normal bowel sounds, non -distended Rectal: deferred Genitourinary: no CVA tenderness Musculoskeletal: normal inspection, back normal Neurologic: normal inspection, alert, oriented x3, responsive Psychiatric: normal inspection, judgement/insight normal, memory normal Skin: normal inspection, normal color, no rash, warm/dry, palpation normal, well hydrated Lymphatic: normal inspection, no adenopathy Current Medications Current Medications Medications (Trade) Dose Ordered Sig/Doris Route PRN Reason Start Time Stop Time Status Last Admin Dose Admin Acetaminophen/ Hydrocodone Bitart ([place] 5/325) 1 tab Q4H PRN ORAL Mild Pain (Pain Scale 1-3) 10/14/18 04:45 10/21/18 04:44 Acetaminophen/ Hydrocodone Bitart ([place] 7.5/325) 1 tab Q4H PRN ORAL Pain Scale (3-5) 10/14/18 04:45 10/21/18 04:44 Dextrose (Dextrose 50%) 25 ml Q30M PRN IV HYPOGLYCEMIA 10/14/18 04:15 11/13/18 04:14 Dextrose (Dextrose 50%) 50 ml Q30M PRN IV HYPOGLYCEMIA 10/14/18 04:15 11/13/18 04:14 Dextrose/ Electrolytes 1,000 ml @ 150 mls/hr Q6H40M IV 10/14/18 09:00 11/13/18 08:59 10/14/18 09:18 Heparin Sodium (Porcine) (Heparin 5000 units/ml) 5,000 units EVERY 12 HOURS SUBQ 10/14/18 09:00 11/13/18 08:59 Insulin Human Regular (NovoLIN R) 5 units PRN PRN IV BS 200-299 10/14/18 04:15 11/13/18 04:14 10/14/18 13:17 Insulin Human Regular (NovoLIN R) 10 units PRN PRN IV BS=>300 10/14/18 04:15 11/13/18 04:14 10/14/18 06:05 Insulin Human Regular 100 units/ Sodium Chloride 101 ml @ 0 mls/hr Q24H IV 10/14/18 04:15 11/13/18 04:14 10/14/18 05:26 Miscellaneous Medication (Insulin Rate Change) 1 ea PRN PRN MISC Hyperglycemia 10/14/18 04:15 11/13/18 04:14 10/14/18 12:09 Morphine Sulfate (Morphine Sulfate) 1 mg Q4H PRN IVP For Pain 10/14/18 08:30 10/21/18 08:29 10/14/18 08:52 Ondansetron HCl (Zofran) 4 mg Q4H PRN IVP Nausea & Vomiting 10/14/18 08:15 11/13/18 08:14 10/14/18 08:42 Pantoprazole (Protonix) 40 mg DAILY IVP 10/14/18 09:00 11/13/18 08:59 10/14/18 08:39 Piperacillin Sod/ Tazobactam Sod 3.375 gm/Sodium Chloride 110 ml @ 27.5 mls/hr Q8H IVPB 10/14/18 05:00 10/21/18 04:59 10/14/18 05:27 Potassium Phosphate 30 mm/ Sodium Chloride 285 ml @ 47.5 mls/hr ONCE IV 10/14/18 11:00 10/14/18 23:59 10/14/18 11:18 GI: Plan Problems: (1) Gastric wall thickening (2) Noncompliance (3) Methamphetamine abuse (4) Hematemesis Plan AP CT reviewed, equivocal esophageal wall thickening. lipase normal utox uncollected EGD scheduled for tomorrow. - NPO @ [facility]. - hold all blood thinners ppi prn transfusions zofran prn, reglan for persistent vomiting will follow with additional recommendations post procedure. Discussed with Dr. Schwarz. Thank you for this patient referral, we will follow. The patient was seen and examined at bedside and all new and available data was reviewed in the patients chart. I agree with the above findings, impression and plan. (Patient seen earlier today. Signature stamp does not reflect patient encounter time.). - MD Aislinn Dhaliwal,[facility] BUSINESS SUPPORT ADMINISTRATOR Oct 14, 2018 14:09
--- NOTE | 2018-10-14 15:28 | Cardiology Report ---
APPROVED REPORT EKG Measurement Heart [id number] NM 130P58 [id number] Sinus tachycardia Otherwise normal ECG
[2018-10-14 15:34] LABS: ANION GAP 15 mmol/L (5-15); BLOOD UREA NITROGEN 20 mg/dL (7-18); CALCIUM 8.3 MG/DL (8.5-10.1); CARBON DIOXIDE 18 MMOL/L (21-32); CHLORIDE 115 MMOL/L (98-107); CREATININE 1.2 MG/DL (0.55-1.30); POTASSIUM 4.1 MMOL/L (3.5-5.1); SODIUM 148 MMOL/L (136-145)
[2018-10-14 15:40] LABS: ALANINE AMINOTRANSFERASE 33 U/L (12-78); ALBUMIN 2.8 G/DL (3.4-5.0); ALBUMIN/GLOBULIN RATIO 0.7 (1.0-2.7); ALKALINE PHOSPHATASE 120 U/L (46-116); ASPARTATE AMINO TRANSFERASE 15 U/L (15-37); BILIRUBIN,TOTAL 0.9 MG/DL (0.2-1.0)
[2018-10-14] MEDS ORDERED: Insulin Human Regular 100units/ml 3ml IV PRN (20:00)
[2018-10-15] VITALS (23 sets, daily range): BP systolic 90–129; BP diastolic 36–77
[2018-10-15] MEDS: Insulin Human Regular 100units/ml 3ml IV PRN ×4 (01:57→10:17)
[2018-10-15] MEDS: Morphine Sulfate 2mg/ml Inj(IV/IM USE ONLY) IVP PRN ×3 (04:23→19:40)
[2018-10-15] MEDS: Zoysn 3.37gm in NS 100ML IVPB SCH (04:35)
[2018-10-15 05:56] LABS: BASOPHILS % (AUTO) 0.4 % (0.0-2.0); EOSINOPHILS % (AUTO) 0.1 % (0.0-3.0); HEMATOCRIT 31.9 % (37.0-47.0); LYMPHOCYTES % (AUTO) 19.9 % (20.0-45.0); MEAN CORPUSCULAR VOLUME 91 FL (80-99); MONOCYTES % (AUTO) 8.9 % (1.0-10.0); NEUTROPHILS % (AUTO) 70.8 % (45.0-75.0); PLATELET COUNT 277 K/UL (150-450); RED BLOOD COUNT 3.51 M/UL (4.20-5.40); RED CELL DISTRIBUTION WIDTH 11.6 % (11.6-14.8); WHITE BLOOD COUNT 8.7 K/UL (4.8-10.8)
[2018-10-15 06:17] LABS: ANION GAP 12 mmol/L (5-15); BLOOD UREA NITROGEN 11 mg/dL (7-18); CALCIUM 7.9 MG/DL (8.5-10.1); CARBON DIOXIDE 20 MMOL/L (21-32); CHLORIDE 114 MMOL/L (98-107); CREATININE 1.1 MG/DL (0.55-1.30); SODIUM 146 MMOL/L (136-145)
[2018-10-15 06:27] LABS: PHOSPHORUS 1.2 MG/DL (2.5-4.9)
[2018-10-15] MEDS: Pantoprazole Inj IVP SCH (08:12)
[2018-10-15] MEDS: Insulin Rate Change 1 Each MISC PRN ×3 (08:12→12:21)
[2018-10-15] MEDS: Heparin 5000 units/ml inj SUBQ SCH (08:17)
[2018-10-15] MEDS ORDERED: Potassium Phosphate 30 MM in NS 275 ML IV SCH (09:30)
[2018-10-15] MEDS: D5 1/2NS w/KCl 20mEq 1,000 ML IV SCH (10:00)
[2018-10-15] MEDS ORDERED: LR 1000ml 1,000 ML IVLG SCH (12:52)
--- NOTE | 2018-10-15 12:52 | Anethesia Preoperative Eval ---
Anesthesia Pre-op PMH/ROS General Date of Evaluation: Oct 15, 2018 Anesthesiologist: Main ASA Score: ASA 3 Mallampati Score Class I : Soft palate, uvula, fauces, pillars visible Class II: Soft palate, uvula, fauces visible Class III: Soft palate, base of uvula visible Class IV: Only hard plate visible Mallampati Classification: Class II Surgeon: Karishma Diagnosis: Hematemesis Surgical Procedure: EGD Anesthesia History: none Social History: drug use - amphetamines Family History: no anesthesia problems Allergies: Coded Allergies: No Known Allergies (Unverified , 10/13/18) Medications: see eMAR Patient NPO?: Yes NPO Date: Oct 14, 2018 NPO Time: 22:00 Past Medical History Cardiovascular: Denies: HTN, CAD, NE, valve dz, arrhythmia, other Pulmonary: Denies: asthma, COPD, JOHN, other Gastrointestinal/Genitourinary: Reports: GERD; Denies: CRI, ESRD, other Neurologic/Psychiatric: Reports: depression/anxiety; Denies: dementia, CVA, TIA, other Endocrine: Reports: DM - admitted in DKA, now resolved; Denies: hypothyroidism, steroids, other HEENT: Denies: cataract (L), cataract (R), glaucoma, BELKOFSKI (L), BELKOFSKI (R), other Hematology/Immune: Denies: anemia, DVT, bleeding disorder, other Musculoskeletal/Integumentary: Denies: OA, RA, DJD, DDD, edema, other PSxH Narrative: Denies Anesthesia Pre-op Phys. Exam Physician Exam Last Vital Signs Date Time Temp Pulse Resp B/P (MAP) Pulse Ox O2 Delivery O2 Flow Rate FiO2 10/15/18 12:00 Room Air 10/15/18 10:00 106 19 108/67 (81) 97 10/15/18 08:00 98.4 Constitutional: NAD Cardiovascular: RRR Respiratory: CTA Airway Exam Mallampati Score: Class II MO: full ROM: full Anesthesia Pre-op A/P Labs Hematology Test 10/15/18 05:30 White Blood Count 8.7 K/UL (4.8-10.8) # Red Blood Count 3.51 M/UL (4.20-5.40) L Hemoglobin 11.0 G/DL (12.0-16.0) #L Hematocrit 31.9 % (37.0-47.0) #L Mean Corpuscular Volume 91 FL (80-99) Mean Corpuscular Hemoglobin 31.3 PG (27.0-31.0) H Mean Corpuscular Hemoglobin Concent 34.4 G/DL (32.0-36.0) Red Cell Distribution Width 11.6 % (11.6-14.8) Platelet Count 277 K/UL (150-450) Mean Platelet Volume 5.7 FL (6.5-10.1) L Neutrophils (%) (Auto) 70.8 % (45.0-75.0) Lymphocytes (%) (Auto) 19.9 % (20.0-45.0) L Monocytes (%) (Auto) 8.9 % (1.0-10.0) Eosinophils (%) (Auto) 0.1 % (0.0-3.0) Basophils (%) (Auto) 0.4 % (0.0-2.0) Coagulation Test 10/15/18 05:30 Prothrombin Time 10.6 SEC (9.30-11.50) Prothromb Time International Ratio 1.0 (0.9-1.1) Activated Partial Thromboplast Time 31 SEC (23-33) Chemistry Test 10/14/18 14:38 10/15/18 05:30 Sodium Level 148 MMOL/L (136-145) H 146 MMOL/L (136-145) H Potassium Level 4.1 MMOL/L (3.5-5.1) 3.0 MMOL/L (3.5-5.1) L Chloride Level 115 MMOL/L (98-107) H 114 MMOL/L (98-107) H Carbon Dioxide Level 18 MMOL/L (21-32) L 20 MMOL/L (21-32) L Anion Gap 15 mmol/L (5-15) 12 mmol/L (5-15) Blood Urea Nitrogen 20 mg/dL (7-18) H 11 mg/dL (7-18) Creatinine 1.2 MG/DL (0.55-1.30) 1.1 MG/DL (0.55-1.30) Estimat Glomerular Filtration Rate 51.1 mL/min (>60) 56.5 mL/min (>60) Glucose Level 237 MG/DL (74-106) H 183 MG/DL (74-106) H Calcium Level 8.3 MG/DL (8.5-10.1) L 7.9 MG/DL (8.5-10.1) L Total Bilirubin 0.9 MG/DL (0.2-1.0) Aspartate Amino Transf (AST/SGOT) 15 U/L (15-37) Alanine Aminotransferase (ALT/SGPT) 33 U/L (12-78) Alkaline Phosphatase 120 U/L (46-116) H Total Protein 6.7 G/DL (6.4-8.2) Albumin 2.8 G/DL (3.4-5.0) L Globulin 3.9 g/dL Albumin/Globulin Ratio 0.7 (1.0-2.7) L Phosphorus Level 1.2 MG/DL (2.5-4.9) L Magnesium Level 1.9 MG/DL (1.8-2.4) Studies Pre-op Studies: EKG - sr Risk Assessment & Plan Assessment: ASA III Plan: MAC Status Change Before Surgery: No Pre-Antibiotics Drug: N/A Odalis Benoit MD Oct 15, 2018 12:52
[2018-10-15] MEDS ORDERED: DiphenhydrAMINE 50mg/ml Inj IVP PRN (13:00)
[2018-10-15] MEDS ORDERED: Propofol 200mg/20ml IV ONE (14:00)
[2018-10-15] MEDS ORDERED: Lidocaine 1% MPF 10mg/ml 5ml ONE (14:00)
--- NOTE | 2018-10-15 14:08 | Immediate Post-Op Evaluation ---
Immediate Post-Op Evalulation Immediate Post-Op Evalulation Procedure: EGD Date of Evaluation: Oct 15, 2018 Time of Evaluation: 14:47 IV Fluids: 300 Blood Products: 0 Estimated Blood Loss: 0 Urinary Output: 0 Blood Pressure Systolic: 124 Blood Pressure Diastolic: 72 Pulse Rate: 99 Respiratory Rate: 16 O2 Sat by Pulse Oximetry: 100 Temperature (Fahrenheit): 97.2 Pain Score (1-10): 0 Nausea: No Vomiting: No Complications 0 Patient Status: awake, reacts, patent, none Hydration Status: adequate Drug: N/A Odalis Benoit MD Oct 15, 2018 14:08
[2018-10-15] MEDS ORDERED: NS 500ML IVPB ONE (14:15)
--- NOTE | 2018-10-15 14:18 | Pre-Procedure Note/Attestation ---
Pre-Procedure Note/Attestation Complete Prior to Procedure Planned Procedure: not applicable Procedure Narrative: egd Indications for Procedure Pre-Operative Diagnosis: gib Attestation I attest that I discussed the nature of the procedure; its benefits; risks and complications; and alternatives (and the risks and benefits of such alternatives ), prior to the procedure, with the patient (or the patient's legal paper sales representative). I attest that, if there was a reasonable possibility of needing a blood transfusion, the patient (or the patient's legal paper sales representative) was given the [facility] standardized written summary, pursuant to the Kory Gabriel Blood Safety Act ([place] Health and Safety Code # 1645, as amended). I attest that I re-evaluated the patient just prior to the surgery and that there has been no change in the patient's H&P, except as documented below: Robin Schwarz MD Oct 15, 2018 14:18
--- NOTE | 2018-10-15 14:28 | Endoscopy Procedure Note ---
Endoscopy Procedure Note General Indication for Procedure: gib Procedures Performed: EGD Operative Findings/Diagnosis: esophagitis Specimen: yes Pt Tolerated Procedure Well: Yes Estimated Blood Loss: none Anesthesia Anesthesiologist: paola Anesthesia: MAC Inserted Devices Implant(s) used?: No GI Core Measures 50 yrs or older w/o bx or poly: Not Applicable 10yrs. F/U not recommended: Not Applicable Robin Schwarz MD Oct 15, 2018 14:28
--- NOTE | 2018-10-15 14:56 | 48 Hour Post Anesthesia Eval ---
Post Anesthesia Evaluation Procedure: EGD Date of Evaluation: Oct 15, 2018 Airway: patent Nausea: No Vomiting: No Pain Intensity: 0 Hydration Status: adequate Cardiopulmonary Status: at baseline Mental Status/LOC: patient returned to baseline Post-Anesthesia Complications: 0 Follow-up care needed: N/A - further care as per primary team Odalis Benoit MD Oct 15, 2018 14:56
--- NOTE | 2018-10-15 15:47 | General Progress Note ---
Assessment/Plan Assessment/Plan #DKA #Noncompliant with insulin -continue ICU level of care -continue insulin drip -Endocrinology following -Monitor potassium levels -Monitor finger sticks #Abdominal pain associated with nausea and vomiting #Hematemesis -EGD showed esophagitis -continue Protonix #Substance abuse/methamphetamine use -continue supportive care #Hypokalemia #Hypophosphatemia -replace per ICU protocol -check labs in AM VTE PPx SCD Full Code Subjective Date patient seen: Oct 15, 2018 Time patient seen: 15:00 ROS Limited/Unobtainable: No Cardiovascular: Denies: chest pain, edema Respiratory: Denies: cough, orthopnea Gastrointestinal/Abdominal: Reports: abdominal pain Allergies: Coded Allergies: No Known Allergies (Unverified , 10/13/18) Subjective Medicine follow up for DKA, hematemesis, substance abuse. Underwent EGD today showing esophagitis. Objective Last 24 Hour Vital Signs Date Time Temp Pulse Resp B/P (MAP) Pulse Ox O2 Delivery O2 Flow Rate FiO2 10/15/18 15:00 104 16 96/36 (56) 95 10/15/18 14:55 99 16 100 10/15/18 13:00 107 17 112/77 (89) 97 10/15/18 12:00 Room Air 10/15/18 12:00 109 10/15/18 12:00 98.6 109 18 126/77 (93) 97 10/15/18 11:00 110 17 122/58 (79) 97 10/15/18 10:00 106 19 108/67 (81) 97 10/15/18 09:00 107 16 123/71 (88) 97 10/15/18 08:00 98.4 107 16 109/55 (73) 97 10/15/18 08:00 107 10/15/18 08:00 Room Air 10/15/18 07:00 118 20 101/61 (74) 97 10/15/18 06:00 118 20 102/56 (71) 97 10/15/18 05:00 118 20 105/53 (70) 96 10/15/18 04:00 Room Air 10/15/18 04:00 98.8 121 21 129/73 (91) 99 10/15/18 04:00 119 10/15/18 03:00 118 18 109/65 (80) 96 10/15/18 02:00 118 17 107/59 (75) 97 10/15/18 01:00 98.6 110 19 115/75 (88) 95 10/15/18 00:00 116 17 116/64 (81) 95 10/15/18 00:00 115 10/15/18 00:00 Room Air 10/14/18 23:00 115 17 109/67 (81) 95 10/14/18 22:00 116 18 118/70 (86) 99 10/14/18 21:00 126 23 120/78 (92) 88 10/14/18 20:00 124 10/14/18 20:00 98.9 121 18 144/79 (100) 98 10/14/18 20:00 Room Air 10/14/18 19:00 127 17 100/82 (88) 100 10/14/18 18:00 130 17 133/55 (81) 100 10/14/18 17:00 133 18 122/60 (80) 100 10/14/18 16:00 Room Air 10/14/18 16:00 135 10/14/18 16:00 98.9 134 18 120/70 (87) 100 Intake and Output 10/14/18 10/15/18 19:00 07:00 Intake Total 2443.5 ml 1282.6 ml Output Total 815 ml 755 ml Balance 1628.5 ml 527.6 ml IV Total 2443.5 ml 1282.6 ml Output Urine Total 815 ml 755 ml # Bowel Movements 1 Laboratory Tests 10/15/18 05:30: White Blood Count 8.7#, Red Blood Count 3.51L, Hemoglobin 11.0#L, Hematocrit 31.9#L, Mean Corpuscular Volume 91, Mean Corpuscular Hemoglobin 31.3H, Mean Corpuscular Hemoglobin Concent 34.4, Red Cell Distribution Width 11.6, Platelet Count 277, Mean Platelet Volume 5.7L, Neutrophils (%) (Auto) 70.8, Lymphocytes ( %) (Auto) 19.9L, Monocytes (%) (Auto) 8.9, Eosinophils (%) (Auto) 0.1, Basophils (%) (Auto) 0.4, Prothrombin Time 10.6, Prothromb Time International Ratio 1.0, Activated Partial Thromboplast Time 31, Sodium Level 146H, Potassium Level 3.0L, Chloride Level 114H, Carbon Dioxide Level 20L, Anion Gap 12, Blood Urea Nitrogen 11, Creatinine 1.1, Estimat Glomerular Filtration Rate 56.5, Glucose Level 183H, Calcium Level 7.9L, Phosphorus Level 1.2L, Magnesium Level 1.9 Height (Feet): 5 Height (Inches): 2.00 Weight (Pounds): 124 General Appearance: no apparent distress, alert Neck: normal alignment, supple Cardiovascular: normal peripheral pulses, normal rate, regular rhythm Respiratory/Chest: chest wall non-tender, lungs clear, normal breath sounds Abdomen: normal bowel sounds, non tender, soft Tc Fuentes MD Oct 15, 2018 15:47
--- NOTE | 2018-10-15 16:00 | Consultation ---
DATE OF CONSULTATION: 10/15/2018 ENDOCRINOLOGY CONSULTATION CONSULTING PHYSICIAN: Erick Jara M.D. REFERRING PHYSICIAN: Bean Powell M.D. REASON FOR CONSULTATION: Diabetic ketoacidosis. HISTORY OF PRESENT ILLNESS: This is a 33-year-old female with history of insulin-dependent diabetes. She has not been using her insulin. The patient presented to the hospital with severe diabetic ketoacidosis with glucose of 730, bicarbonate of 8, and anion gap of 32. Serum test was negative. Lipase was normal. Lactic acid was normal. The patient was admitted to the ICU to be treated with IV insulin. PAST MEDICAL HISTORY: 1. Substance abuse. 2. Insulin-dependent diabetes. 3. Noncompliance. PAST SURGICAL HISTORY: None. FAMILY HISTORY: Noncontributory. SOCIAL HISTORY: Met abuse. REVIEW OF SYSTEMS: As per HPI. ALLERGIES TO MEDICATIONS: None. MEDICATIONS AN OUTPATIENT: None. The patient was noncompliant. LABORATORY VALUES: Sodium 140, potassium 4.7, chloride 90, bicarbonate 18, BUN 47, creatinine 1.7, anion gap of 32. PHYSICAL EXAMINATION: GENERAL: The patient is awake. VITAL SIGNS: Blood pressure is 102/56, pulse of 118, respiratory rate 20. HEENT: Pupils are equal and reactive to light. Sclerae anicteric. NECK: No JVD. HEART: Regular. LUNGS: Clear. ABDOMEN: Positive bowel sounds. EXTREMITIES: No clubbing, cyanosis, or edema. DIAGNOSES: 1. Diabetic ketoacidosis, severe. 2. Acute kidney injury. 3. Substance abuse. PLAN: 1. Continue IV insulin until the anion gap is closed. 2. We will follow and replete electrolytes pending magnesium, phosphorus, and potassium. 3. Once the gap is closed, we will convert to subcutaneous insulin therapy with Levemir and NovoLog insulin. 4. We will follow the patient closely during hospital stay. Thank you Dr. Powell for the courtesy of this consultation. Erick Jara M.D. CAROLIN Richards JOB#: [id number] CC: AIDNA
[2018-10-15] MEDS ORDERED: Levemir Flexpen SUBQ SCH (17:00)
[2018-10-15] MEDS ORDERED: NovoLOG Insulin Flexpen SUBQ SCH ×2 (18:00→21:00)
--- NOTE | 2018-10-15 18:45 | Procedure Note ---
DATE OF PROCEDURE: 10/15/2018 SURGEON: Robni Schwarz M.D. ANESTHESIOLOGIST: Dr. Quach. PROCEDURE: Upper endoscopy with biopsy. ANESTHESIA: Per Dr. Quach. INSTRUMENT: Olympus adult flexible upper endoscope. INDICATION: Upper GI bleeding. The procedure, risks, benefits, and possible consequences, including hemorrhage, aspiration, perforation and infection, and alternative treatments, were explained to the patient/legal guardian by Dr. Robin Schwarz and the patient/legal guardian understood and accepted these risks. DESCRIPTION OF PROCEDURE: After informed consent was obtained and the patient was adequately sedated, Olympus upper endoscope was advanced from the mouth to the second portion of duodenum and retroflexion was performed in the stomach. The patient has severe erosive esophagitis, most probably the source of upper GI bleeding. In the stomach, there was diffuse gastritis. Random biopsy from antrum was obtained to rule out H. pylori infection. Otherwise, the rest of endoscopic examination grossly looked within normal limits. The patient tolerated the procedure very well without any complication. SUMMARY OF FINDINGS: 1. Esophagitis. 2. Gastritis. RECOMMENDATIONS: Reflux measures. PPI. Follow up biopsy results and treat accordingly. Robin Schwarz M.D. DR: Joana JOB#: [id number] CC:
--- NOTE | 2018-10-15 22:36 | Consultation ---
History of Present Illness General Chief Complaint: Abdominal Pain Referring physician: ESTELLE ISLAS Reason for Consultation: EMESIS, Esophageal wall thickening Present Illness Allergies: Coded Allergies: No Known Allergies (Unverified , 10/13/18) Medication History No Active Prescriptions or Reported Meds Patient History Healthcare decision maker self Resuscitation status Full Code Advanced Directive on File No Physical Exam Last 24 Hour Vital Signs Date Time Temp Pulse Resp B/P (MAP) Pulse Ox O2 Delivery O2 Flow Rate FiO2 10/15/18 22:00 108 16 100/60 (73) 10/15/18 21:00 110 17 90/51 (64) 10/15/18 20:00 Room Air 10/15/18 20:00 108 30 107/58 (74) 95 10/15/18 20:00 105 10/15/18 19:00 98.6 110 18 104/62 (76) 95 10/15/18 18:00 110 16 104/62 (76) 95 10/15/18 17:00 108 16 91/47 (62) 95 10/15/18 16:00 108 16 111/56 (74) 95 10/15/18 16:00 Room Air 10/15/18 16:00 108 10/15/18 15:00 104 16 96/36 (56) 95 10/15/18 14:55 99 16 100 10/15/18 13:00 107 17 112/77 (89) 97 10/15/18 12:00 Room Air 10/15/18 12:00 109 10/15/18 12:00 98.6 109 18 126/77 (93) 97 10/15/18 11:00 110 17 122/58 (79) 97 10/15/18 10:00 106 19 108/67 (81) 97 10/15/18 09:00 107 16 123/71 (88) 97 10/15/18 08:00 98.4 107 16 109/55 (73) 97 10/15/18 08:00 107 10/15/18 08:00 Room Air 10/15/18 07:00 118 20 101/61 (74) 97 10/15/18 06:00 118 20 102/56 (71) 97 10/15/18 05:00 118 20 105/53 (70) 96 10/15/18 04:00 Room Air 10/15/18 04:00 98.8 121 21 129/73 (91) 99 10/15/18 04:00 119 10/15/18 03:00 118 18 109/65 (80) 96 10/15/18 02:00 118 17 107/59 (75) 97 10/15/18 01:00 98.6 110 19 115/75 (88) 95 10/15/18 00:00 116 17 116/64 (81) 95 10/15/18 00:00 115 10/15/18 00:00 Room Air 10/14/18 23:00 115 17 109/67 (81) 95 Intake and Output 10/14/18 10/15/18 19:00 07:00 Intake Total 2443.5 ml 1282.6 ml Output Total 815 ml 755 ml Balance 1628.5 ml 527.6 ml IV Total 2443.5 ml 1282.6 ml Output Urine Total 815 ml 755 ml # Bowel Movements 1 Laboratory Tests Test 10/15/18 05:30 White Blood Count 8.7 K/UL (4.8-10.8) # Red Blood Count 3.51 M/UL (4.20-5.40) L Hemoglobin 11.0 G/DL (12.0-16.0) #L Hematocrit 31.9 % (37.0-47.0) #L Mean Corpuscular Volume 91 FL (80-99) Mean Corpuscular Hemoglobin 31.3 PG (27.0-31.0) H Mean Corpuscular Hemoglobin Concent 34.4 G/DL (32.0-36.0) Red Cell Distribution Width 11.6 % (11.6-14.8) Platelet Count 277 K/UL (150-450) Mean Platelet Volume 5.7 FL (6.5-10.1) L Neutrophils (%) (Auto) 70.8 % (45.0-75.0) Lymphocytes (%) (Auto) 19.9 % (20.0-45.0) L Monocytes (%) (Auto) 8.9 % (1.0-10.0) Eosinophils (%) (Auto) 0.1 % (0.0-3.0) Basophils (%) (Auto) 0.4 % (0.0-2.0) Prothrombin Time 10.6 SEC (9.30-11.50) Prothromb Time International Ratio 1.0 (0.9-1.1) Activated Partial Thromboplast Time 31 SEC (23-33) Sodium Level 146 MMOL/L (136-145) H Potassium Level 3.0 MMOL/L (3.5-5.1) L Chloride Level 114 MMOL/L (98-107) H Carbon Dioxide Level 20 MMOL/L (21-32) L Anion Gap 12 mmol/L (5-15) Blood Urea Nitrogen 11 mg/dL (7-18) Creatinine 1.1 MG/DL (0.55-1.30) Estimat Glomerular Filtration Rate 56.5 mL/min (>60) Glucose Level 183 MG/DL (74-106) H Calcium Level 7.9 MG/DL (8.5-10.1) L Phosphorus Level 1.2 MG/DL (2.5-4.9) L Magnesium Level 1.9 MG/DL (1.8-2.4) Height (Feet): 5 Height (Inches): 2.00 Weight (Pounds): 124 Medications Current Medications Medications (Trade) Dose Ordered Sig/Doris Route PRN Reason Start Time Stop Time Status Last Admin Dose Admin Acetaminophen/ Hydrocodone Bitart ([place] 5/325) 1 tab Q4H PRN ORAL Mild Pain (Pain Scale 1-3) 10/14/18 04:45 10/21/18 04:44 Acetaminophen/ Hydrocodone Bitart ([place] 7.5/325) 1 tab Q4H PRN ORAL Pain Scale (3-5) 10/14/18 04:45 10/21/18 04:44 Dextrose (Dextrose 50%) 25 ml Q30M PRN IV Hypoglycemia 10/15/18 16:45 11/14/18 16:44 Dextrose (Dextrose 50%) 50 ml Q30M PRN IV Hypoglycemia 10/15/18 16:45 11/14/18 16:44 Insulin Aspart (NovoLOG) BEFORE MEALS AND HS SUBQ 10/15/18 21:00 11/14/18 20:59 10/15/18 20:20 Insulin Aspart (NovoLOG) 6 units NOVOTIAC SUBQ 10/15/18 18:00 11/14/18 17:59 10/15/18 17:45 Insulin Detemir (Levemir) 24 units Q24HRS SUBQ 10/15/18 17:00 11/14/18 16:59 10/15/18 17:44 Morphine Sulfate (Morphine Sulfate) 1 mg Q4H PRN IVP For Pain 10/14/18 08:30 10/21/18 08:29 10/15/18 19:40 Ondansetron HCl (Zofran) 4 mg Q4H PRN IVP Nausea & Vomiting 10/14/18 08:15 11/13/18 08:14 10/14/18 15:41 Pantoprazole (Protonix) 40 mg DAILY IVP 10/14/18 09:00 11/13/18 08:59 10/15/18 08:12 Potassium Phosphate 30 mm/ Sodium Chloride 285 ml @ 47.5 mls/hr ONCE IV 10/15/18 09:30 10/15/18 23:59 10/15/18 09:42 Sodium Chloride 1,000 ml @ 100 mls/hr Q10H IV 10/15/18 16:45 11/14/18 16:44 10/15/18 16:45 Aurora Frank MD Oct 15, 2018 22:36
[2018-10-16] VITALS: BP 110/74
[2018-10-16] MEDS: Morphine Sulfate 2mg/ml Inj(IV/IM USE ONLY) IVP PRN ×2 (00:19→05:13)
[2018-10-16] MEDS ORDERED: HYDROcodone/Acetamin 7.5/325 tab ORAL PRN (00:45)
[2018-10-16] MEDS ORDERED: Norco 5mg/325mg tab ORAL PRN (00:45)
[2018-10-16 04:00] VITALS: BP 115/79
[2018-10-16] MEDS ORDERED: NovoLOG Insulin Flexpen SUBQ SCH (06:30)
--- NOTE | 2018-10-16 06:49 | General Progress Note ---
Assessment/Plan Problem List: (1) DKA (diabetic ketoacidoses) ICD Codes: E13.10 - Other specified diabetes mellitus with ketoacidosis without coma SNOMED: 090524171, 53022514 Qualifiers: Qualified Codes: E10.10 - Type 1 diabetes mellitus with ketoacidosis without coma (2) Methamphetamine abuse ICD Codes: F15.10 - Other stimulant abuse, uncomplicated SNOMED: 009346847, 49019700 (3) Noncompliance ICD Codes: Z91.19 - Patient's noncompliance with other medical treatment and regimen SNOMED: 7773478 (4) Gastric wall thickening ICD Codes: K31.89 - Other diseases of stomach and duodenum SNOMED: 92381869 (5) Hematemesis ICD Codes: K92.0 - Hematemesis SNOMED: 6584070, 43565309 Qualifiers: Qualified Codes: K92.0 - Hematemesis Assessment/Plan increase Levemir to 30 units daily increase Novolog to 8 units ac tid + SSI Subjective Allergies: Coded Allergies: No Known Allergies (Unverified , 10/13/18) All Systems: reviewed and negative except above Subjective events noted Item Value Date Time Bedside Blood Glucose 286 mg/dl H 10/15/18 2100 Bedside Blood Glucose 284 mg/dl H 10/15/18 1745 Bedside Blood Glucose 194 mg/dl H 10/15/18 1221 Bedside Blood Glucose 211 mg/dl H 10/15/18 1017 Bedside Blood Glucose 211 mg/dl H 10/15/18 0600 Objective Last 24 Hour Vital Signs Date Time Temp Pulse Resp B/P (MAP) Pulse Ox O2 Delivery O2 Flow Rate FiO2 10/16/18 05:43 98.6 10/16/18 04:00 98.6 109 18 115/79 (91) 100 10/16/18 00:00 98.9 112 18 110/74 (86) 98 10/15/18 23:00 98.9 109 16 100/58 (72) 100 10/15/18 22:00 108 16 100/60 (73) 10/15/18 21:00 110 17 90/51 (64) 10/15/18 20:00 Room Air 10/15/18 20:00 108 30 107/58 (74) 95 10/15/18 20:00 105 10/15/18 19:00 98.6 110 18 104/62 (76) 95 10/15/18 18:00 110 16 104/62 (76) 95 10/15/18 17:00 108 16 91/47 (62) 95 10/15/18 16:00 108 16 111/56 (74) 95 10/15/18 16:00 Room Air 10/15/18 16:00 108 10/15/18 15:00 104 16 96/36 (56) 95 10/15/18 14:55 99 16 100 10/15/18 13:00 107 17 112/77 (89) 97 10/15/18 12:00 Room Air 10/15/18 12:00 109 10/15/18 12:00 98.6 109 18 126/77 (93) 97 10/15/18 11:00 110 17 122/58 (79) 97 10/15/18 10:00 106 19 108/67 (81) 97 10/15/18 09:00 107 16 123/71 (88) 97 10/15/18 08:00 98.4 107 16 109/55 (73) 97 10/15/18 08:00 107 10/15/18 08:00 Room Air 10/15/18 07:00 118 20 101/61 (74) 97 Intake and Output 10/15/18 10/16/18 19:00 07:00 Intake Total 2702.5 ml 500 ml Output Total 750 ml 450 ml Balance 1952.5 ml 50 ml Intake Oral 1690 ml 100 ml IV Total 1012.5 ml 400 ml Output Urine Total 750 ml 450 ml Height (Feet): 5 Height (Inches): 2.00 Weight (Pounds): 124 General Appearance: no apparent distress Neck: normal alignment Cardiovascular: normal rate Respiratory/Chest: lungs clear Objective Current Medications Medications (Trade) Dose Ordered Sig/Doris Route PRN Reason Start Time Stop Time Status Last Admin Dose Admin Acetaminophen/ Hydrocodone Bitart ([place] 5/325) 1 tab Q4H PRN ORAL Mild Pain (Pain Scale 1-3) 10/16/18 00:45 10/21/18 04:44 Acetaminophen/ Hydrocodone Bitart ([place] 7.5/325) 1 tab Q4H PRN ORAL Pain Scale (3-5) 10/16/18 00:45 10/21/18 04:44 Citalopram Hydrobromide (celeXA) 20 mg DAILY ORAL 10/16/18 09:00 11/15/18 08:59 Dextrose (Dextrose 50%) 25 ml Q30M PRN IV Hypoglycemia 10/15/18 23:45 11/14/18 16:44 Dextrose (Dextrose 50%) 50 ml Q30M PRN IV Hypoglycemia 10/15/18 23:45 11/14/18 16:44 Insulin Aspart (NovoLOG) BEFORE MEALS AND HS SUBQ 10/16/18 06:30 11/14/18 20:59 Insulin Aspart (NovoLOG) 6 units NOVOTIAC SUBQ 10/16/18 06:30 11/14/18 17:59 Insulin Detemir (Levemir) 24 units Q24HRS SUBQ 10/16/18 17:00 11/14/18 16:59 Morphine Sulfate (Morphine Sulfate) 1 mg Q4H PRN IVP For Pain 10/16/18 00:30 10/21/18 08:29 10/16/18 05:13 Ondansetron HCl (Zofran) 4 mg Q4H PRN IVP Nausea & Vomiting 10/16/18 00:15 11/13/18 08:14 Pantoprazole (Protonix) 40 mg DAILY IVP 10/16/18 09:00 11/13/18 08:59 Sodium Chloride 1,000 ml @ 100 mls/hr Q10H IV 10/15/18 23:30 11/14/18 16:44 10/16/18 05:22 Erick Jara MD Oct 16, 2018 06:49
[2018-10-16] MEDS: NovoLOG Insulin Flexpen SUBQ SCH ×6 (07:17→21:58)
[2018-10-16 08:00] VITALS: BP 127/76
[2018-10-16 08:03] LABS: HEMATOCRIT 29.8 % (37.0-47.0); HEMOGLOBIN 9.9 G/DL (12.0-16.0); MEAN CORPUSCULAR VOLUME 93 FL (80-99); PLATELET COUNT 237 K/UL (150-450); RED BLOOD COUNT 3.22 M/UL (4.20-5.40); RED CELL DISTRIBUTION WIDTH 11.5 % (11.6-14.8); WHITE BLOOD COUNT 5.1 K/UL (4.8-10.8)
[2018-10-16 08:51] LABS: ANION GAP 8 mmol/L (5-15); BLOOD UREA NITROGEN 5 mg/dL (7-18); CALCIUM 7.5 MG/DL (8.5-10.1); CARBON DIOXIDE 25 MMOL/L (21-32); CHLORIDE 111 MMOL/L (98-107); CREATININE 0.5 MG/DL (0.55-1.30); PHOSPHORUS 2.3 MG/DL (2.5-4.9); POTASSIUM 3.9 MMOL/L (3.5-5.1); SODIUM 144 MMOL/L (136-145)
[2018-10-16] MEDS ORDERED: Citalopram Hydrobromide 10mg Tab ORAL SCH (09:00)
[2018-10-16] MEDS ORDERED: oxyCODONE HCL/Acetaminophen 5/325mg ORAL PRN (09:15)
[2018-10-16] MEDS ORDERED: Sucralfate 1gm tab ORAL SCH (09:15)
[2018-10-16] MEDS: Citalopram Hydrobromide 10mg Tab ORAL SCH (09:24)
[2018-10-16] MEDS: Pantoprazole Inj IVP SCH (09:24)
[2018-10-16] MEDS ORDERED: GI Cocktail 50ml ORAL PRN (10:00)
--- NOTE | 2018-10-16 11:14 | General Progress Note ---
Assessment/Plan Assessment/Plan #DKA #DM #Noncompliant with insulin -transferred out of ICU, off insulin drip -started on Levemir -Endocrinology following -Monitor potassium levels -Monitor finger sticks #Abdominal pain associated with nausea and vomiting #Hematemesis -EGD showed esophagitis -continue PPI -add Carafate and GI cocktail #Substance abuse/methamphetamine use #Homelessness -continue supportive care -psychiatry following -social work eval for dispo #Hypokalemia #Hypophosphatemia -replaced VTE PPx SCD Full Code Subjective Date patient seen: Oct 16, 2018 Time patient seen: 11:00 ROS Limited/Unobtainable: No Cardiovascular: Denies: chest pain Respiratory: Denies: cough, shortness of breath Gastrointestinal/Abdominal: Reports: abdominal pain; Denies: abdomen distended Allergies: Coded Allergies: No Known Allergies (Unverified , 10/13/18) Subjective Medicine follow up for DKA, hematemesis, substance abuse. Still with epigastric abdominal pain and difficulty eating. Objective Last 24 Hour Vital Signs Date Time Temp Pulse Resp B/P (MAP) Pulse Ox O2 Delivery O2 Flow Rate FiO2 10/16/18 08:00 99.8 95 19 127/76 (93) 97 10/16/18 05:43 98.6 10/16/18 04:00 98.6 109 18 115/79 (91) 100 10/16/18 00:00 98.9 112 18 110/74 (86) 98 10/15/18 23:00 98.9 109 16 100/58 (72) 100 10/15/18 22:00 108 16 100/60 (73) 10/15/18 21:00 110 17 90/51 (64) 10/15/18 20:00 Room Air 10/15/18 20:00 108 30 107/58 (74) 95 10/15/18 20:00 105 10/15/18 19:00 98.6 110 18 104/62 (76) 95 10/15/18 18:00 110 16 104/62 (76) 95 10/15/18 17:00 108 16 91/47 (62) 95 10/15/18 16:00 108 16 111/56 (74) 95 10/15/18 16:00 Room Air 10/15/18 16:00 108 10/15/18 15:00 104 16 96/36 (56) 95 10/15/18 14:55 99 16 100 10/15/18 13:00 107 17 112/77 (89) 97 10/15/18 12:00 Room Air 10/15/18 12:00 109 10/15/18 12:00 98.6 109 18 126/77 (93) 97 Intake and Output 10/15/18 10/16/18 19:00 07:00 Intake Total 2702.5 ml 700 ml Output Total 750 ml 450 ml Balance 1952.5 ml 250 ml Intake Oral 1690 ml 100 ml IV Total 1012.5 ml 600 ml Output Urine Total 750 ml 450 ml Laboratory Tests 10/16/18 05:50: White Blood Count 5.1, Red Blood Count 3.22L, Hemoglobin 9.9L, Hematocrit 29.8L , Mean Corpuscular Volume 93, Mean Corpuscular Hemoglobin 30.6, Mean Corpuscular Hemoglobin Concent 33.1, Red Cell Distribution Width 11.5L, Platelet Count 237, Mean Platelet Volume 5.5L, Neutrophils (%) (Auto) , Lymphocytes (%) (Auto) , Monocytes (%) (Auto) , Eosinophils (%) (Auto) , Basophils (%) (Auto) , Differential Total Cells Counted 100, Neutrophils % ( Manual) 26L, Lymphocytes % (Manual) 61H, Monocytes % (Manual) 12H, Eosinophils % (Manual) 0, Basophils % (Manual) 0, Band Neutrophils 1, Reactive Lymphocytes 1 +, Platelet Estimate Adequate, Platelet Morphology Normal, Red Blood Cell Morphology Normal, Sodium Level 144, Potassium Level 3.9, Chloride Level 111H, Carbon Dioxide Level 25, Anion Gap 8, Blood Urea Nitrogen 5L, Creatinine 0.5#L, Estimat Glomerular Filtration Rate > 60, Glucose Level 208H, Calcium Level 7.5L , Phosphorus Level 2.3L, Magnesium Level 1.6L Height (Feet): 5 Height (Inches): 2.00 Weight (Pounds): 125 General Appearance: no apparent distress, alert Neck: normal alignment, supple Cardiovascular: normal peripheral pulses, normal rate, regular rhythm Respiratory/Chest: chest wall non-tender, lungs clear, normal breath sounds Abdomen: normal bowel sounds, non tender Tc Fuentes MD Oct 16, 2018 11:14
--- NOTE | 2018-10-16 11:53 | GI Progress Note ---
Assessment/Plan Problems: (1) Methamphetamine abuse ICD Codes: F15.10 - Other stimulant abuse, uncomplicated SNOMED: 200379775, 52326805 (2) DKA (diabetic ketoacidoses) ICD Codes: E13.10 - Other specified diabetes mellitus with ketoacidosis without coma SNOMED: 996388915, 40167517 Qualifiers: Qualified Codes: E10.10 - Type 1 diabetes mellitus with ketoacidosis without coma (3) Hematemesis ICD Codes: K92.0 - Hematemesis SNOMED: 1489129, 94494265 Qualifiers: Qualified Codes: K92.0 - Hematemesis (4) Gastric wall thickening ICD Codes: K31.89 - Other diseases of stomach and duodenum SNOMED: 54690120 Status: stable Status Narrative Discussed with Dr. Schwarz. Assessment/Plan SUMMARY OF FINDINGS: 1. Esophagitis. 2. Gastritis. RECOMMENDATIONS: advance diet prn transfusions Reflux measures. PPI. Follow up biopsy results and treat accordingly. follow labs The patient was seen and examined at bedside and all new and available data was reviewed in the patients chart. I agree with the above findings, impression and plan. (Patient seen earlier today. Signature stamp does not reflect patient encounter time.). - Robin Schwarz MD Subjective Subjective no episodes of hematemesis Objective Last 24 Hour Vital Signs Date Time Temp Pulse Resp B/P (MAP) Pulse Ox O2 Delivery O2 Flow Rate FiO2 10/16/18 09:00 Room Air 10/16/18 08:00 99.8 95 19 127/76 (93) 97 10/16/18 05:43 98.6 10/16/18 04:00 98.6 109 18 115/79 (91) 100 10/16/18 00:00 98.9 112 18 110/74 (86) 98 10/15/18 23:00 98.9 109 16 100/58 (72) 100 10/15/18 22:00 108 16 100/60 (73) 10/15/18 21:00 110 17 90/51 (64) 10/15/18 20:00 Room Air 10/15/18 20:00 108 30 107/58 (74) 95 10/15/18 20:00 105 10/15/18 19:00 98.6 110 18 104/62 (76) 95 10/15/18 18:00 110 16 104/62 (76) 95 10/15/18 17:00 108 16 91/47 (62) 95 10/15/18 16:00 108 16 111/56 (74) 95 10/15/18 16:00 Room Air 10/15/18 16:00 108 10/15/18 15:00 104 16 96/36 (56) 95 10/15/18 14:55 99 16 100 10/15/18 13:00 107 17 112/77 (89) 97 10/15/18 12:00 Room Air 10/15/18 12:00 109 10/15/18 12:00 98.6 109 18 126/77 (93) 97 Intake and Output 10/15/18 10/16/18 19:00 07:00 Intake Total 2702.5 ml 700 ml Output Total 750 ml 450 ml Balance 1952.5 ml 250 ml Intake Oral 1690 ml 100 ml IV Total 1012.5 ml 600 ml Output Urine Total 750 ml 450 ml Laboratory Tests Test 10/16/18 05:50 White Blood Count 5.1 K/UL (4.8-10.8) Red Blood Count 3.22 M/UL (4.20-5.40) L Hemoglobin 9.9 G/DL (12.0-16.0) L Hematocrit 29.8 % (37.0-47.0) L Mean Corpuscular Volume 93 FL (80-99) Mean Corpuscular Hemoglobin 30.6 PG (27.0-31.0) Mean Corpuscular Hemoglobin Concent 33.1 G/DL (32.0-36.0) Red Cell Distribution Width 11.5 % (11.6-14.8) L Platelet Count 237 K/UL (150-450) Mean Platelet Volume 5.5 FL (6.5-10.1) L Neutrophils (%) (Auto) % (45.0-75.0) Lymphocytes (%) (Auto) % (20.0-45.0) Monocytes (%) (Auto) % (1.0-10.0) Eosinophils (%) (Auto) % (0.0-3.0) Basophils (%) (Auto) % (0.0-2.0) Differential Total Cells Counted 100 Neutrophils % (Manual) 26 % (45-75) L Lymphocytes % (Manual) 61 % (20-45) H Monocytes % (Manual) 12 % (1-10) H Eosinophils % (Manual) 0 % (0-3) Basophils % (Manual) 0 % (0-2) Band Neutrophils 1 % (0-8) Reactive Lymphocytes 1+ Platelet Estimate Adequate Platelet Morphology Normal Red Blood Cell Morphology Normal Sodium Level 144 MMOL/L (136-145) Potassium Level 3.9 MMOL/L (3.5-5.1) Chloride Level 111 MMOL/L (98-107) H Carbon Dioxide Level 25 MMOL/L (21-32) Anion Gap 8 mmol/L (5-15) Blood Urea Nitrogen 5 mg/dL (7-18) L Creatinine 0.5 MG/DL (0.55-1.30) #L Estimat Glomerular Filtration Rate > 60 mL/min (>60) Glucose Level 208 MG/DL (74-106) H Calcium Level 7.5 MG/DL (8.5-10.1) L Phosphorus Level 2.3 MG/DL (2.5-4.9) L Magnesium Level 1.6 MG/DL (1.8-2.4) L Height (Feet): 5 Height (Inches): 2.00 Weight (Pounds): 125 General Appearance: WD/WN, no apparent distress, alert Cardiovascular: normal rate Respiratory/Chest: normal breath sounds, no respiratory distress Abdominal Exam: normal bowel sounds, non tender, soft Extremities: normal range of motion, non-tender Anya Tao NP Oct 16, 2018 11:53
[2018-10-16 12:00] VITALS: BP 138/79
[2018-10-16] MEDS: Sucralfate 1gm tab ORAL SCH ×3 (13:34→21:56)
--- NOTE | 2018-10-16 13:36 | General Progress Note ---
Assessment/Plan Problem List: (1) Methamphetamine abuse ICD Codes: F15.10 - Other stimulant abuse, uncomplicated SNOMED: 061100415, 26366456 Status: stable Assessment/Plan the pt is doing well not at imminent dts/dto the pt may leave [facility]a she has capacity the pt denies meth use the pt is reluctant to get mental health treatment. Subjective Allergies: Coded Allergies: No Known Allergies (Unverified , 10/13/18) Objective Last 24 Hour Vital Signs Date Time Temp Pulse Resp B/P (MAP) Pulse Ox O2 Delivery O2 Flow Rate FiO2 10/16/18 12:00 98.9 100 18 138/79 (98) 97 10/16/18 09:00 Room Air 10/16/18 08:00 99.8 95 19 127/76 (93) 97 10/16/18 05:43 98.6 10/16/18 04:00 98.6 109 18 115/79 (91) 100 10/16/18 00:00 98.9 112 18 110/74 (86) 98 10/15/18 23:00 98.9 109 16 100/58 (72) 100 10/15/18 22:00 108 16 100/60 (73) 10/15/18 21:00 110 17 90/51 (64) 10/15/18 20:00 Room Air 10/15/18 20:00 108 30 107/58 (74) 95 10/15/18 20:00 105 10/15/18 19:00 98.6 110 18 104/62 (76) 95 10/15/18 18:00 110 16 104/62 (76) 95 10/15/18 17:00 108 16 91/47 (62) 95 10/15/18 16:00 108 16 111/56 (74) 95 10/15/18 16:00 Room Air 10/15/18 16:00 108 10/15/18 15:00 104 16 96/36 (56) 95 10/15/18 14:55 99 16 100 Intake and Output 10/15/18 10/16/18 19:00 07:00 Intake Total 2702.5 ml 700 ml Output Total 750 ml 450 ml Balance 1952.5 ml 250 ml Intake Oral 1690 ml 100 ml IV Total 1012.5 ml 600 ml Output Urine Total 750 ml 450 ml Laboratory Tests 10/16/18 05:50: White Blood Count 5.1, Red Blood Count 3.22L, Hemoglobin 9.9L, Hematocrit 29.8L , Mean Corpuscular Volume 93, Mean Corpuscular Hemoglobin 30.6, Mean Corpuscular Hemoglobin Concent 33.1, Red Cell Distribution Width 11.5L, Platelet Count 237, Mean Platelet Volume 5.5L, Neutrophils (%) (Auto) , Lymphocytes (%) (Auto) , Monocytes (%) (Auto) , Eosinophils (%) (Auto) , Basophils (%) (Auto) , Differential Total Cells Counted 100, Neutrophils % ( Manual) 26L, Lymphocytes % (Manual) 61H, Monocytes % (Manual) 12H, Eosinophils % (Manual) 0, Basophils % (Manual) 0, Band Neutrophils 1, Reactive Lymphocytes 1 +, Platelet Estimate Adequate, Platelet Morphology Normal, Red Blood Cell Morphology Normal, Sodium Level 144, Potassium Level 3.9, Chloride Level 111H, Carbon Dioxide Level 25, Anion Gap 8, Blood Urea Nitrogen 5L, Creatinine 0.5#L, Estimat Glomerular Filtration Rate > 60, Glucose Level 208H, Calcium Level 7.5L , Phosphorus Level 2.3L, Magnesium Level 1.6L Height (Feet): 5 Height (Inches): 2.00 Weight (Pounds): 125 General Appearance: WD/WN, no apparent distress, alert Neurologic: oriented x 3, responsive, depressed affect Aurora Frank MD Oct 16, 2018 13:36
[2018-10-16 16:00] VITALS: BP 130/78
[2018-10-16] MEDS ORDERED: Levemir Flexpen SUBQ SCH ×2 (17:00→21:00)
[2018-10-16 20:00] VITALS: BP 118/72
[2018-10-17] VITALS: BP 126/78
[2018-10-17 04:00] VITALS: BP 124/77
[2018-10-17] MEDS: NovoLOG Insulin Flexpen SUBQ SCH ×3 (06:43→11:51)
[2018-10-17 07:16] LABS: BASOPHILS % (AUTO) 1.2 % (0.0-2.0); EOSINOPHILS % (AUTO) 2.6 % (0.0-3.0); HEMATOCRIT 32.2 % (37.0-47.0); HEMOGLOBIN 11.2 G/DL (12.0-16.0); LYMPHOCYTES % (AUTO) 53.5 % (20.0-45.0); MEAN CORPUSCULAR VOLUME 90 FL (80-99); MONOCYTES % (AUTO) 11.7 % (1.0-10.0); NEUTROPHILS % (AUTO) 31.1 % (45.0-75.0); PLATELET COUNT 292 K/UL (150-450); RED BLOOD COUNT 3.59 M/UL (4.20-5.40); RED CELL DISTRIBUTION WIDTH 10.9 % (11.6-14.8); WHITE BLOOD COUNT 5.5 K/UL (4.8-10.8)
[2018-10-17 08:00] VITALS: BP 128/80
[2018-10-17 08:10] LABS: ANION GAP 6 mmol/L (5-15); BLOOD UREA NITROGEN 6 mg/dL (7-18); CALCIUM 8.6 MG/DL (8.5-10.1); CARBON DIOXIDE 31 MMOL/L (21-32); CHLORIDE 105 MMOL/L (98-107); CREATININE 0.5 MG/DL (0.55-1.30); POTASSIUM 3.4 MMOL/L (3.5-5.1); SODIUM 142 MMOL/L (136-145)
[2018-10-17] MEDS ORDERED: LEVEMIR FL100 UNIT/1 SUBQ (08:22)
[2018-10-17] MEDS ORDERED: CELEXA20 MG ORAL (08:22)
[2018-10-17] MEDS ORDERED: CARAFATE1 G1 ORAL (08:22)
[2018-10-17] MEDS ORDERED: OMEPRAZOLE20 M2 ORAL (08:22)
[2018-10-17] MEDS ORDERED: NORCO 5-325 TA1 EACH ORAL (08:22)
--- NOTE | 2018-10-17 08:27 | Discharge Summary ---
Discharge Summary Hospital Course Date of Admission Oct 14, 2018 at 01:04 Date of Discharge 10/17 Admitting Diagnosis DKA HPI Zoe Jung is a 33 year old female who was admitted on Oct 14, 2018 at 01 :04 for Diabetic Ketoacidosis Hospital Course Patient admitted with DKA due to noncomliance with medications- initially in ICU on insulin drip, seen by endocrinology and transitioned to Levemir 30 units. Also seen by GI for hematemesis, underwent EGD showing esophagitis/ gastritis. Treated with PPI, Carafate and GI cocktail with improvement in GI symptoms, tolerating regular diet now. Seen by Psychiatry and Oscial Work for depression and substance abuse, started on Celexa. She will be discharged home in stable condition, all scripts to be filled at [facility] prior to discharge home with family. #DKA #DM #Noncompliant with insulin -continue Levemir -Endocrinology evaluated #Abdominal pain associated with nausea and vomiting #Hematemesis #Esophagitis -EGD showed esophagitis -continue PPI -add Carafate and GI cocktail #Substance abuse/methamphetamine use -seen by social work -will be staying with family #Hypokalemia #Hypophosphatemia -replaced Discharge Medications New Medications: Omeprazole (Omeprazole) 20 Mg Capsule.dr 20 MG ORAL DAILY for 30 Days, #3 CAP Citalopram Hydrobromide* (Celexa*) 20 Mg Tablet 20 MG ORAL DAILY for 30 Days, #30 TAB Hydrocodone Bit/Acetaminophen 5-325* ([place] 5-325*) 1 Each Tablet 1 TAB ORAL Q4H PRN for 3 Days, #12 TAB Insulin Detemir (Levemir Flexpen) 100 Unit/1 Ml Insuln.pen 30 UNITS SUBQ QHS for 30 Days, #30 EA Sucralfate* (Carafate*) 1 Gm Tablet 1 GM ORAL FOUR TIMES A DAY for 15 Days, #60 TAB Discharge Discharge Disposition Patient was discharged to home with family Discharge Diagnoses: (1) DKA (diabetic ketoacidoses) Tc Fuentes MD Oct 17, 2018 08:27
[2018-10-17] MEDS: Citalopram Hydrobromide 10mg Tab ORAL SCH (08:30)
[2018-10-17] MEDS: Pantoprazole Inj IVP SCH (08:30)
[2018-10-17] MEDS: Sucralfate 1gm tab ORAL SCH ×2 (08:30→13:20)
--- NOTE | 2018-10-17 10:29 | General Progress Note ---
Assessment/Plan Problem List: (1) DKA (diabetic ketoacidoses) ICD Codes: E13.10 - Other specified diabetes mellitus with ketoacidosis without coma SNOMED: 814946188, 00174299 Qualifiers: Qualified Codes: E10.10 - Type 1 diabetes mellitus with ketoacidosis without coma (2) Methamphetamine abuse ICD Codes: F15.10 - Other stimulant abuse, uncomplicated SNOMED: 962510242, 03759334 (3) Noncompliance ICD Codes: Z91.19 - Patient's noncompliance with other medical treatment and regimen SNOMED: 3062538 (4) Gastric wall thickening ICD Codes: K31.89 - Other diseases of stomach and duodenum SNOMED: 12528120 (5) Hematemesis ICD Codes: K92.0 - Hematemesis SNOMED: 7983065, 73578496 Qualifiers: Qualified Codes: K92.0 - Hematemesis Assessment/Plan continue Levemir 30 units qhs increase Novolog to 10 units ac tid + SSI Subjective Allergies: Coded Allergies: No Known Allergies (Unverified , 10/13/18) All Systems: reviewed and negative except above Subjective events noted Item Value Date Time Bedside Blood Glucose 222 mg/dl H 10/17/18 0645 Bedside Blood Glucose 187 mg/dl H 10/16/18 2159 Bedside Blood Glucose 270 mg/dl H 10/16/18 1715 Bedside Blood Glucose 273 mg/dl H 10/16/18 1200 Bedside Blood Glucose 218 mg/dl H 10/16/18 0717 Bedside Blood Glucose 218 mg/dl H 10/16/18 0630 Objective Last 24 Hour Vital Signs Date Time Temp Pulse Resp B/P (MAP) Pulse Ox O2 Delivery O2 Flow Rate FiO2 10/17/18 09:00 Room Air 10/17/18 08:00 98.2 93 18 128/80 (96) 97 10/17/18 04:00 98.6 90 16 124/77 (93) 97 10/17/18 00:00 99.0 94 16 126/78 (94) 97 10/16/18 21:00 Room Air 10/16/18 20:00 99.0 91 16 118/72 (87) 96 10/16/18 16:00 98.6 90 19 130/78 (95) 97 10/16/18 12:00 98.9 100 18 138/79 (98) 97 Intake and Output 10/16/18 10/17/18 19:00 07:00 Intake Total 900 ml 600 ml Output Total 600 ml Balance 300 ml 600 ml Intake Oral 600 ml IV Total 900 ml Output Urine Total 600 ml # Voids 3 Laboratory Tests 10/17/18 06:20: White Blood Count 5.5, Red Blood Count 3.59L, Hemoglobin 11.2L, Hematocrit 32.2L , Mean Corpuscular Volume 90, Mean Corpuscular Hemoglobin 31.1H, Mean Corpuscular Hemoglobin Concent 34.7, Red Cell Distribution Width 10.9L, Platelet Count 292, Mean Platelet Volume 5.8L, Neutrophils (%) (Auto) 31.1L, Lymphocytes (%) (Auto) 53.5H, Monocytes (%) (Auto) 11.7H, Eosinophils (%) (Auto ) 2.6, Basophils (%) (Auto) 1.2, Sodium Level 142, Potassium Level 3.4L, Chloride Level 105, Carbon Dioxide Level 31, Anion Gap 6, Blood Urea Nitrogen 6L , Creatinine 0.5L, Estimat Glomerular Filtration Rate > 60, Glucose Level 241H, Calcium Level 8.6 Height (Feet): 5 Height (Inches): 2.00 Weight (Pounds): 127 General Appearance: no apparent distress Neck: normal alignment Cardiovascular: normal rate Respiratory/Chest: lungs clear Abdomen: normal bowel sounds Objective Current Medications Medications (Trade) Dose Ordered Sig/Doris Route PRN Reason Start Time Stop Time Status Last Admin Dose Admin Acetaminophen/ Hydrocodone Bitart ([place] 5/325) 1 tab Q4H PRN ORAL Mild Pain (Pain Scale 1-3) 10/16/18 00:45 10/21/18 04:44 Acetaminophen/ Hydrocodone Bitart ([place] 7.5/325) 1 tab Q4H PRN ORAL Pain Scale (3-5) 10/16/18 00:45 10/21/18 04:44 Citalopram Hydrobromide (celeXA) 20 mg DAILY ORAL 10/16/18 09:00 11/15/18 08:59 10/17/18 08:30 Dextrose (Dextrose 50%) 25 ml Q30M PRN IV Hypoglycemia 10/15/18 23:45 11/14/18 16:44 Dextrose (Dextrose 50%) 50 ml Q30M PRN IV Hypoglycemia 10/15/18 23:45 11/14/18 16:44 Insulin Aspart (NovoLOG) BEFORE MEALS AND HS SUBQ 10/16/18 06:30 11/14/18 20:59 10/17/18 06:43 Insulin Aspart (NovoLOG) 8 units NOVOTIAC SUBQ 10/16/18 11:50 11/14/18 17:59 10/17/18 06:45 Insulin Detemir (Levemir) 30 units QHS SUBQ 10/16/18 21:00 11/15/18 20:59 10/16/18 21:59 Ondansetron HCl (Zofran) 4 mg Q4H PRN IVP Nausea & Vomiting 10/16/18 00:15 11/13/18 08:14 Oxycodone/ Acetaminophen (Percocet 5-325) 1 tab Q4H PRN ORAL Breakthrough Pain 10/16/18 09:15 10/23/18 09:14 Pantoprazole (Protonix) 40 mg DAILY IVP 10/16/18 09:00 11/13/18 08:59 10/17/18 08:30 Sodium Chloride 1,000 ml @ 100 mls/hr Q10H IV 10/15/18 23:30 11/14/18 16:44 10/16/18 19:39 Sucralfate (Carafate) 1 gm FOUR TIMES A DAY ORAL 10/16/18 13:00 11/15/18 12:59 10/17/18 08:30 Erick Jara MD Oct 17, 2018 10:29
--- NOTE | 2018-10-17 11:19 | GI Progress Note ---
Assessment/Plan Problems: (1) Methamphetamine abuse ICD Codes: F15.10 - Other stimulant abuse, uncomplicated SNOMED: 938485713, 45632011 (2) DKA (diabetic ketoacidoses) ICD Codes: E13.10 - Other specified diabetes mellitus with ketoacidosis without coma SNOMED: 530876544, 02795688 Qualifiers: Qualified Codes: E10.10 - Type 1 diabetes mellitus with ketoacidosis without coma (3) Hematemesis ICD Codes: K92.0 - Hematemesis SNOMED: 4906428, 63545001 Qualifiers: Qualified Codes: K92.0 - Hematemesis (4) Gastric wall thickening ICD Codes: K31.89 - Other diseases of stomach and duodenum SNOMED: 08332358 Status: stable Status Narrative Discussed with Dr. Schwarz Assessment/Plan SUMMARY OF FINDINGS: 1. Esophagitis. 2. Gastritis. RECOMMENDATIONS: advance diet prn transfusions Reflux measures. PPI. Follow up biopsy results and treat accordingly. follow labs The patient was seen and examined at bedside and all new and available data was reviewed in the patients chart. I agree with the above findings, impression and plan. (Patient seen earlier today. Signature stamp does not reflect patient encounter time.). - Robin Schwarz MD Subjective Gastrointestinal/Abdominal: Reports: no symptoms Subjective no episodes of hematemesis Objective Last 24 Hour Vital Signs Date Time Temp Pulse Resp B/P (MAP) Pulse Ox O2 Delivery O2 Flow Rate FiO2 10/17/18 09:00 Room Air 10/17/18 08:00 98.2 93 18 128/80 (96) 97 10/17/18 04:00 98.6 90 16 124/77 (93) 97 10/17/18 00:00 99.0 94 16 126/78 (94) 97 10/16/18 21:00 Room Air 10/16/18 20:00 99.0 91 16 118/72 (87) 96 10/16/18 16:00 98.6 90 19 130/78 (95) 97 10/16/18 12:00 98.9 100 18 138/79 (98) 97 Intake and Output 10/16/18 10/17/18 19:00 07:00 Intake Total 900 ml 600 ml Output Total 600 ml Balance 300 ml 600 ml Intake Oral 600 ml IV Total 900 ml Output Urine Total 600 ml # Voids 3 Laboratory Tests Test 10/17/18 06:20 White Blood Count 5.5 K/UL (4.8-10.8) Red Blood Count 3.59 M/UL (4.20-5.40) L Hemoglobin 11.2 G/DL (12.0-16.0) L Hematocrit 32.2 % (37.0-47.0) L Mean Corpuscular Volume 90 FL (80-99) Mean Corpuscular Hemoglobin 31.1 PG (27.0-31.0) H Mean Corpuscular Hemoglobin Concent 34.7 G/DL (32.0-36.0) Red Cell Distribution Width 10.9 % (11.6-14.8) L Platelet Count 292 K/UL (150-450) Mean Platelet Volume 5.8 FL (6.5-10.1) L Neutrophils (%) (Auto) 31.1 % (45.0-75.0) L Lymphocytes (%) (Auto) 53.5 % (20.0-45.0) H Monocytes (%) (Auto) 11.7 % (1.0-10.0) H Eosinophils (%) (Auto) 2.6 % (0.0-3.0) Basophils (%) (Auto) 1.2 % (0.0-2.0) Sodium Level 142 MMOL/L (136-145) Potassium Level 3.4 MMOL/L (3.5-5.1) L Chloride Level 105 MMOL/L (98-107) Carbon Dioxide Level 31 MMOL/L (21-32) Anion Gap 6 mmol/L (5-15) Blood Urea Nitrogen 6 mg/dL (7-18) L Creatinine 0.5 MG/DL (0.55-1.30) L Estimat Glomerular Filtration Rate > 60 mL/min (>60) Glucose Level 241 MG/DL (74-106) H Calcium Level 8.6 MG/DL (8.5-10.1) Height (Feet): 5 Height (Inches): 2.00 Weight (Pounds): 127 General Appearance: WD/WN, no apparent distress, alert Cardiovascular: normal rate Respiratory/Chest: normal breath sounds, no respiratory distress Abdominal Exam: normal bowel sounds, non tender, soft Extremities: normal range of motion, non-tender TaoAnya carbone NP Oct 17, 2018 11:19
[2018-10-17] MEDS ORDERED: NovoLOG Insulin Flexpen SUBQ SCH (11:50)
[2018-10-17 12:00] VITALS: BP 122/78
[2018-10-17] MEDS ORDERED: Tubing IV Secondary IV ONE (15:46)
[2018-10-17] MEDS ORDERED: NS 275ml ONE (15:46)
== END 2018-10-17 15:47 | disposition home or self-care (01) | DRG 638 ==
LOC: EDBD 23:23 → EMR 23:34 → ICU 10-14 01:04 → EDBEDREQ 10-14 01:10 → 4E 10-15 23:30
PROC: 0DB78ZX Excision of Stomach, Pylorus, Via Natural or Artificial Opening Endoscopic, Diagnostic (ICD-10-PCS; principal; 2018-10-15 14:25)
DX: E11.10 Type 2 diabetes mellitus with ketoacidosis without coma (principal); N17.9 Acute kidney failure, unspecified; K92.0 Hematemesis; Z79.4 Long term (current) use of insulin; Z91.14 Patient's other noncompliance with medication regimen; K20.8 Other esophagitis; F15.10 Other stimulant abuse, uncomplicated; F17.200 Nicotine dependence, unspecified, uncomplicated; E87.6 Hypokalemia; E83.39 Other disorders of phosphorus metabolism; K29.70 Gastritis, unspecified, without bleeding; K31.89 Other diseases of stomach and duodenum
CPT/HCPCS: 36415; 36600; 71045; 74018; 74176; 80048; 80053; 80307; 81003; 81025; 82803; 82962; 83036; 83605; 83690; 83735; 84100; 84703; 85007; 85025; 85610; 85730; 87081; 93005; 94003; 94150; 96361; 96365; 96366; 96368; 96375; 96376; 99291; J1815; J2405; J8499; S5561